=== PATIENT | male | born 1955 | race Caucasian/White ===

== ENCOUNTER 2019-10-06 12:14 | Emergency (ER) | payer MEDICARE, OTHER ==
--- NOTE | 2019-10-06 12:30 | EDM.PDOC ---
ED HPI GENERAL MEDICAL PROBLEM - General Chief Complaint: Abdominal Pain Stated Complaint: SWOLLEN ABDOMEN Time Seen by Provider: 10/06/19 12:24 - History of Present Illness INITIAL COMMENTS - FREE TEXT/NARRATIVE: 64-year-old male presents to the emergency room with increasing swelling mostly in his abdomen but to a lesser degree in his extremities. This is been going on for the last week and a half progressively getting worse. The patient has a significant past medical history of liver cancer he is currently getting chemotherapy for this his last round of chemo was in March he was scheduled to have one weekend however with the COVID-19 situation this was put off the last round of chemo was fairly successful there was 1 area of concern. Patient denies any pain anywhere he does have increasing shortness of breath with worsening edema. Patient says about every year and a half or so he has this edema problem. He denies any chest pain. He does have increased breathing difficulties mostly with activity and ambulation. Patient denies any fevers or chills no nausea no vomiting no chest pain. He is not aware of any allergies. He takes an occasional potassium and occasional allergy medication all [id number]. - Related Data Allergies Allergy/AdvReac Type Severity Reaction Status Date / Time No Known Allergies Allergy Verified 10/06/19 12:23 Home Meds: Home Meds . [No Known Home Meds] 10/06/19 [History] Social & Family History - Tobacco Use Smoking Status *Q: Current Every Day Smoker Years of Tobacco use: 50 Packs/Tins Daily: 0.5 - Recreational Drug Use Recreational Drug Use: No ED ROS GENERAL - Review of Systems Review Of Systems: See Below Constitutional: Reports: No Symptoms HEENT: Reports: No Symptoms Respiratory: Reports: Shortness of Breath. Denies: Cough, Sputum Cardiovascular: Reports: Dyspnea on Exertion, Edema. Denies: Chest Pain Endocrine: Reports: No Symptoms GI/Abdominal: Reports: Other (Increased swelling in his abdomen). Denies: Abdominal Pain, Constipation, Diarrhea, Nausea, Vomiting : Reports: No Symptoms Musculoskeletal: Reports: No Symptoms Skin: Reports: Other (He had a little pimple-like lesion on his abdomen that ruptured spontaneously in his abdomen last night) Psychiatric: Reports: No Symptoms ED EXAM, GI/ABD - Physical Exam Exam: See Below Exam Limited By: No Limitations General Appearance: Alert, No Apparent Distress Head: Atraumatic, Normocephalic Neck: Normal Inspection, Supple, Non-Tender, Full Range of Motion. No: Lymphadenopathy (L), Lymphadenopathy (R) Respiratory/Chest: No Respiratory Distress, Lungs Clear, Normal Breath Sounds Cardiovascular: Regular Rate, Rhythm, No Edema, Systolic Murmur (Best in the right upper sternal border he is not aware of any ultrasound of her been done on this in the past) GI/Abdominal Exam: Normal Bowel Sounds, Non-Tender, Distended (Palpation is limited). No: Guarding, Rigid, Rebound, Tender Back Exam: Normal Inspection. No: CVA Tenderness (L), CVA Tenderness (R) Psychiatric: Normal Affect, Normal Mood Skin Exam: Warm, Dry, Intact Course - Vital Signs Last Recorded V/S: Last Vital Signs Temp 36.9 C 10/06/19 12:21 Pulse 100 10/06/19 12:21 Resp 16 10/06/19 12:21 BP 155/100 H 10/06/19 12:21 Pulse Ox 97 10/06/19 12:21 - Orders/Labs/Meds Orders: Active Orders 24 hr Category Date Time Status EKG Documentation Completion [RC] STAT Care 10/06/19 12:30 Active Labs: Laboratory Tests 10/06/19 10/06/19 10/06/19 Range/Units 12:45 12:45 12:45 WBC 4.42 (4.23-9.07) K/mm3 RBC 3.96 L (4.63-6.08) M/mm3 Hgb 14.0 (13.7-17.5) gm/dl Hct 39.5 L (40.1-51.0) % MCV 99.7 H (79.0-92.2) fl MCH 35.4 H (25.7-32.2) pg MCHC 35.4 (32.2-35.5) g/dl RDW Std Deviation 61.4 H (35.1-43.9) fL Plt Count 72 L (163-337) K/mm3 MPV 8.5 L (9.4-12.3) fl Neut % (Auto) 70.9 H (34.0-67.9) % Lymph % (Auto) 15.6 L (21.8-53.1) % Dolores % (Auto) 12.0 (5.3-12.2) % Eos % (Auto) 1.1 (0.8-7.0) Baso % (Auto) 0.2 (0.1-1.2) % Neut # (Auto) 3.13 (1.78-5.38) K/mm3 Lymph # (Auto) 0.69 L (1.32-3.57) K/mm3 Dolores # (Auto) 0.53 (0.30-0.82) K/mm3 Eos # (Auto) 0.05 (0.04-0.54) K/mm3 Baso # (Auto) 0.01 (0.01-0.08) K/mm3 Manual Slide Review Abnormal smear PT 17.3 H (9.7-12.0) SECONDS INR 1.63 APTT 37 H (22-31) SECONDS Sodium 141 (136-145) mEq/L Potassium 4.0 (3.5-5.1) mEq/L Chloride 105 (98-107) mEq/L Carbon Dioxide 27 (21-32) mEq/L Anion Gap 13.0 (5-15) BUN 9 (7-18) mg/dL Creatinine 1.0 (0.7-1.3) mg/dL Est Cr Clr Drug Dosing 78.32 mL/min Estimated GFR (MDRD) > 60 (>60) mL/min BUN/Creatinine Ratio 9.0 L (14-18) Glucose 130 H (80-115) mg/dL Calcium 7.9 L (8.5-10.1) mg/dL Magnesium (1.8-2.4) mg/dl Total Bilirubin 7.0 H (0.2-1.0) mg/dL Direct Bilirubin 2.40 H (0.0-0.2) mg/dl AST 55 H (15-37) U/L ALT 28 (16-63) U/L Alkaline Phosphatase 115 (46-116) U/L Ammonia (11-32) umol/L Total Protein 6.6 (6.4-8.2) g/dl Albumin 2.1 L (3.4-5.0) g/dl Globulin 4.5 gm/dL Albumin/Globulin Ratio 0.5 L (1-2) 10/06/19 10/06/19 Range/Units 12:45 12:45 WBC (4.23-9.07) K/mm3 RBC (4.63-6.08) M/mm3 Hgb (13.7-17.5) gm/dl Hct (40.1-51.0) % MCV (79.0-92.2) fl MCH (25.7-32.2) pg MCHC (32.2-35.5) g/dl RDW Std Deviation (35.1-43.9) fL Plt Count (163-337) K/mm3 MPV (9.4-12.3) fl Neut % (Auto) (34.0-67.9) % Lymph % (Auto) (21.8-53.1) % Dolores % (Auto) (5.3-12.2) % Eos % (Auto) (0.8-7.0) Baso % (Auto) (0.1-1.2) % Neut # (Auto) (1.78-5.38) K/mm3 Lymph # (Auto) (1.32-3.57) K/mm3 Dolores # (Auto) (0.30-0.82) K/mm3 Eos # (Auto) (0.04-0.54) K/mm3 Baso # (Auto) (0.01-0.08) K/mm3 Manual Slide Review PT (9.7-12.0) SECONDS INR APTT (22-31) SECONDS Sodium (136-145) mEq/L Potassium (3.5-5.1) mEq/L Chloride (98-107) mEq/L Carbon Dioxide (21-32) mEq/L Anion Gap (5-15) BUN (7-18) mg/dL Creatinine (0.7-1.3) mg/dL Est Cr Clr Drug Dosing mL/min Estimated GFR (MDRD) (>60) mL/min BUN/Creatinine Ratio (14-18) Glucose (80-115) mg/dL Calcium (8.5-10.1) mg/dL Magnesium 1.5 L (1.8-2.4) mg/dl Total Bilirubin (0.2-1.0) mg/dL Direct Bilirubin (0.0-0.2) mg/dl AST (15-37) U/L ALT (16-63) U/L Alkaline Phosphatase (46-116) U/L Ammonia 57 H (11-32) umol/L Total Protein (6.4-8.2) g/dl Albumin (3.4-5.0) g/dl Globulin gm/dL Albumin/Globulin Ratio (1-2) Meds: Medications Discontinued Medications Generic Name Dose Route Start Last Admin Trade Name Jaron PRN Reason Stop Dose Admin Furosemide 40 mg 10/06/19 12:32 10/06/19 12:55 Lasix IVPUSH 10/06/19 12:33 40 mg ONETIME ONE Administration Magnesium Sulfate 2 gm/ Premix 50 mls @ 25 mls/hr 10/06/19 13:37 10/06/19 14: 05 IV 10/06/19 15:36 25 mls/hr ONETIME ONE Administration Levofloxacin/Dextrose 500 mg/ 100 mls @ 100 mls/hr 10/06/19 14:43 Premix IV 10/06/19 15:42 ONETIME ONE - Re-Assessments/Exams Free Text/Narrative Re-Assessment/Exam: 10/06/19 15:13 Evaluated by myself and again by , our hospitalist both of us agree the patient needs to be admitted he declines this and will sign out AMA he needs to get his affairs in order but he agrees to return to the hospital before noon tomorrow. At which point he will need repeat labs urinalysis CBC CMP. It is also recommended that the patient be started on 500 mg of Levaquin to hold him until he gets back tomorrow I have informed the patient no uncertain terms that we cannot exclude SBP and this can be a very dangerous situation 10/06/19 16:12 The Levaquin is just getting started now he will leave AGAINST MEDICAL ADVICE after this. Departure - Departure Time of Disposition: 15:16 Disposition: Against Medical Advice 07 Clinical Impression: Ascites, malignant, Liver cancer - Discharge Information Referrals: Pelon Acosta MD [Primary Care Provider] - Forms: ED Department Discharge Additional Instructions: Return to the emergency room before noon tomorrow. Return sooner with any questions problems or worsening symptoms. Return immediately if you develop any fevers. You have been advised that you need to be admitted to the hospital for further evaluation and treatment and to exclude a condition that caused spontaneous bacterial peritonitis. This can be a very serious infection. Sepsis Event Note - Evaluation Sepsis Screening Result: No Definite Risk - Focused Exam Vital Signs: Vital Signs Temp Pulse Resp BP Pulse Ox 10/06/19 12:21 36.9 C 100 16 155/100 H 97 Date Exam was Performed: 10/06/19 Time Exam was Performed: 16:11 - My Orders Last 24 Hours: My Active Orders 10/06/19 12:30 EKG Documentation Completion [RC] STAT - Assessment/Plan Last 24 Hours: My Active Orders 10/06/19 12:30 EKG Documentation Completion [RC] STAT
[2019-10-06] MEDS ORDERED: Furosemide 20 MG/2 ML VIAL IVPUSH ONE (12:32)
[2019-10-06] MEDS ORDERED: Magnesium Sulfate/Water 2 GM in Premix Bag 1 BAG IV ONE (13:37)
--- NOTE | 2019-10-06 13:54 | CR ---
Chest: Frontal view of the chest was obtained. Comparison: No prior chest imaging. Heart size is normal. Tortuous thoracic aorta is seen. Lung markings are mildly increased most likely accentuated from portable technique. No acute parenchymal change is suspected. Bony structures shows minimal scoliosis. Impression: 1. Findings as noted above. 2. Nothing acute is suspected. Diagnostic code #2 This report was dictated in MDT
[2019-10-06] MEDS ORDERED: Levofloxacin/Dextrose 5%-Water 500 MG in Premix Bag 1 BAG IV ONE (14:43)
--- NOTE | 2019-10-06 16:52 | PCM.CONS ---
H&P History of Present Illness - General Date of Service: 10/06/19 - History of Present Illness Other HPI/Comments: Mr. Barajas is a pleasant 64-year-old male, with past medical history significant for recent diagnosis of liver cancer currently on trial chemotherapy ,and nicotine dependence who presented to the ED with chief complaint of lower extremity swelling mild shortness of breath and swollen abdomen. The patient reported he he was diagnosed with liver cancer back in February 2019, so far. The patient has had 2 rounds of chemo therapy. Was supposed to have another chemotherapy before but due to coronavirus, patient reported he has not been able to follow-up with his appointment. Ported for the past 3 days, he had noticed increased swelling in both lower extremities, at the same time noticed significant distention in his abdomen. Symptoms also associated with mild shortness of breath this morning, was concerned so came to the ED for evaluation. On presentation to ED, patient noted with tense abdomen with mild diffuse discomfort. Denies any obvious fevers or chills no nausea no vomiting noted with 3+ pitting edema bilaterally.work-up that was done to the patient in the ED indicated WBC 4.4, H&H 14.0/39.5 platelets 72 INR 1.6 sodium/potassium 141/4.0 chloride 105 CO2 29 BUN/creatinine 9/1.0 random glucose of 130 magnesium 1.5 Albumin 2.1 given this presentation, the diagnosis could include portal vein thrombosis, ascites possibly secondary to peritonitis, ascites requiring therapeutic paracentesis and possible CHF. Plan is to admit patient to [facility] telemetry, but the patient has adamantly refused admitted today and states that he will come back tomorrow to the hospital. Risk and benefit was explained to the patient and the patient that he will leave AGAINST MEDICAL ADVICE and come back tomorrow for any treatment. - Related Data Allergies/Adverse Reactions: Allergies Allergy/AdvReac Type Severity Reaction Status Date / Time No Known Allergies Allergy Verified 10/06/19 12:23 Home Medications: Home Meds . [No Known Home Meds] 10/06/19 [History] Past Medical History Endocrine/Metabolic History: Reports: Diabetes, Type II Oncologic (Cancer) History: Reports: Liver Social & Family History - Tobacco Use Smoking Status *Q: Current Every Day Smoker Years of Tobacco use: 50 Packs/Tins Daily: 0.5 - Recreational Drug Use Recreational Drug Use: No H&P Review of Systems - Review of Systems: Review Of Systems: See Below General: Reports: No Symptoms HEENT: Reports: No Symptoms Pulmonary: Reports: Shortness of Breath Cardiovascular: Reports: Orthopnea Gastrointestinal: Reports: Abdominal Pain, Distension, Other (abdominal distention and swelling) Musculoskeletal: Reports: No Symptoms Skin: Reports: Pruritis Psychiatric: Reports: No Symptoms, Confusion Neurological: Reports: No Symptoms Exam - Exam Exam: See Below - Vital Signs Vital Signs: Last Vital Signs Temp 98.5 F 10/06/19 12:21 Pulse 100 10/06/19 12:21 Resp 16 10/06/19 12:21 BP 155/100 H 10/06/19 12:21 Pulse Ox 97 10/06/19 12:21 Weight: 168 lb - Exam General: Alert, Oriented, Cooperative, Mild Distress, Other (Slightly jaundiced) HEENT: Conjunctiva Clear, EACs Clear, EOMI, Hearing Intact, Mucosa Moist & [place] Neck: Supple, Trachea Midline Lungs: Clear to Auscultation, Decreased Breath Sounds Cardiovascular: Regular Rate, Regular Rhythm GI/Abdominal Exam: Distended, Hepatomegaly, Other (blister on belly) Extremities: Normal Inspection, Normal Range of Motion, Pedal Edema (Plus pitting edema) Skin: Warm, Dry, Intact, Wound (on belly) Neurological: Cranial Nerves Intact, Reflexes Equal Bilateral Neuro Extensive - Mental Status: Alert, Oriented x3, Normal Mood/Affect, Normal Cognition, Memory Intact Neuro Extensive - Motor, Sensory, Reflexes: CN II-XII Intact, Normal Gait, Normal Reflexes Psychiatric: Alert, Normal Affect, Normal Mood - Patient Data Lab Results Last 24 hrs: Laboratory Results - last 24 hr 10/06/19 10/06/19 10/06/19 Range/Units 12:45 12:45 12:45 WBC 4.42 (4.23-9.07) K/mm3 RBC 3.96 L (4.63-6.08) M/mm3 Hgb 14.0 (13.7-17.5) gm/dl Hct 39.5 L (40.1-51.0) % MCV 99.7 H (79.0-92.2) fl MCH 35.4 H (25.7-32.2) pg MCHC 35.4 (32.2-35.5) g/dl RDW Std Deviation 61.4 H (35.1-43.9) fL Plt Count 72 L (163-337) K/mm3 MPV 8.5 L (9.4-12.3) fl Neut % (Auto) 70.9 H (34.0-67.9) % Lymph % (Auto) 15.6 L (21.8-53.1) % Robertson % (Auto) 12.0 (5.3-12.2) % Eos % (Auto) 1.1 (0.8-7.0) Baso % (Auto) 0.2 (0.1-1.2) % Neut # (Auto) 3.13 (1.78-5.38) K/mm3 Lymph # (Auto) 0.69 L (1.32-3.57) K/mm3 Robertson # (Auto) 0.53 (0.30-0.82) K/mm3 Eos # (Auto) 0.05 (0.04-0.54) K/mm3 Baso # (Auto) 0.01 (0.01-0.08) K/mm3 Manual Slide Review Abnormal smear PT 17.3 H (9.7-12.0) SECONDS INR 1.63 APTT 37 H (22-31) SECONDS Sodium 141 (136-145) mEq/L Potassium 4.0 (3.5-5.1) mEq/L Chloride 105 (98-107) mEq/L Carbon Dioxide 27 (21-32) mEq/L Anion Gap 13.0 (5-15) BUN 9 (7-18) mg/dL Creatinine 1.0 (0.7-1.3) mg/dL Est Cr Clr Drug Dosing 78.32 mL/min Estimated GFR (MDRD) > 60 (>60) mL/min BUN/Creatinine Ratio 9.0 L (14-18) Glucose 130 H (80-115) mg/dL Calcium 7.9 L (8.5-10.1) mg/dL Magnesium (1.8-2.4) mg/dl Total Bilirubin 7.0 H (0.2-1.0) mg/dL Direct Bilirubin 2.40 H (0.0-0.2) mg/dl AST 55 H (15-37) U/L ALT 28 (16-63) U/L Alkaline Phosphatase 115 (46-116) U/L Ammonia (11-32) umol/L Total Protein 6.6 (6.4-8.2) g/dl Albumin 2.1 L (3.4-5.0) g/dl Globulin 4.5 gm/dL Albumin/Globulin Ratio 0.5 L (1-2) 10/06/19 10/06/19 Range/Units 12:45 12:45 WBC (4.23-9.07) K/mm3 RBC (4.63-6.08) M/mm3 Hgb (13.7-17.5) gm/dl Hct (40.1-51.0) % MCV (79.0-92.2) fl MCH (25.7-32.2) pg MCHC (32.2-35.5) g/dl RDW Std Deviation (35.1-43.9) fL Plt Count (163-337) K/mm3 MPV (9.4-12.3) fl Neut % (Auto) (34.0-67.9) % Lymph % (Auto) (21.8-53.1) % Robertson % (Auto) (5.3-12.2) % Eos % (Auto) (0.8-7.0) Baso % (Auto) (0.1-1.2) % Neut # (Auto) (1.78-5.38) K/mm3 Lymph # (Auto) (1.32-3.57) K/mm3 Robertson # (Auto) (0.30-0.82) K/mm3 Eos # (Auto) (0.04-0.54) K/mm3 Baso # (Auto) (0.01-0.08) K/mm3 Manual Slide Review PT (9.7-12.0) SECONDS INR APTT (22-31) SECONDS Sodium (136-145) mEq/L Potassium (3.5-5.1) mEq/L Chloride (98-107) mEq/L Carbon Dioxide (21-32) mEq/L Anion Gap (5-15) BUN (7-18) mg/dL Creatinine (0.7-1.3) mg/dL Est Cr Clr Drug Dosing mL/min Estimated GFR (MDRD) (>60) mL/min BUN/Creatinine Ratio (14-18) Glucose (80-115) mg/dL Calcium (8.5-10.1) mg/dL Magnesium 1.5 L (1.8-2.4) mg/dl Total Bilirubin (0.2-1.0) mg/dL Direct Bilirubin (0.0-0.2) mg/dl AST (15-37) U/L ALT (16-63) U/L Alkaline Phosphatase (46-116) U/L Ammonia 57 H (11-32) umol/L Total Protein (6.4-8.2) g/dl Albumin (3.4-5.0) g/dl Globulin gm/dL Albumin/Globulin Ratio (1-2) Result Diagrams: 10/06/19 12:45 10/06/19 12:45 Sepsis Event Note - Evaluation Sepsis Screening Result: No Definite Risk - Focused Exam Vital Signs: Vital Signs Temp Pulse Resp BP Pulse Ox 10/06/19 12:21 98.5 F 100 16 155/100 H 97 Date Exam was Performed: 10/06/19 Time Exam was Performed: 16:46 Consult PN Assessment/Plan Procedures: Procedures BONE IMAGING WHOLE BODY (03/26/19) MRI ABDOMEN W/O & W/DYE (01/09/19) Problem List Initiated/Reviewed/Updated: Yes My Orders Last 24 Hours: Assessment and plan: Plan is to keep the patient in the hospital for abdominal distention secondary to ascites with plan for therapeutic paracentesis with diagnosis, possible tenuous bacterial peritonitis and portal vein obstruction. At this time, the patient is adamantly refusing to be admitted and plans to leave AGAINST MEDICAL ADVICE state he has something to do at home. Patient is advised to come back to the ED if symptoms get worse. Per the patient he states he will be coming back tomorrow. Can benefit was explained to the patient at this time patient has agreed to leave AGAINST MEDICAL ADVICE.
--- NOTE | 2019-10-07 18:39 | CONS ---
CONSULTING PHYSICIAN: PARUL CAMEJO MD DATE OF CONSULTATION: 10/06/2019 ADDENDUM: REASON FOR MEDICAL CONSULT: Further management of the patient who came to emergency room complaining of abdominal distention and was found with dense ascites. PAST MEDICAL HISTORY: Significant for a liver malignancy diagnosed in February 2019, smoking. The patient was seen, examined, and discussed by me with Elie Edwards PA-C. The patient is a 64-year-old white male with past medical history as above who received his last chemotherapy in March 2019 and was scheduled next chemotherapy for Easter. Stated that overall he was in his usual state of health till approximately 3-4 days ago when the patient noticed that his abdomen was starting to get increasingly distended, and the patient had shortness of breath on modest exertion. He came to the emergency room for evaluation. Evaluation revealed that patient has very large and dense ascites. Pulse ox though was normal. Otherwise, blood test did not reveal any elevation of white blood cells. The patient's creatinine was found normal of 1.0. The patient was afebrile. On physical exam, very minimal diffuse tenderness throughout abdomen. INR is 1.63, moderately elevated. H and H are normal, 14.0/39.5. Overall impression that the patient with a liver malignancy, on chemotherapy, developed sudden worsening of ascites for last 3 days that resulted in shortness of breath on modest exertion. In the emergency room, the patient received Lasix 40 mg IV push, and then already responded with significant diuresis, even though shortness of breath on modest exertion not resolved. In this setting, the patient is strongly recommended for admission for the differential diagnosis is gradual worsening of ascites and acute on top of chronic CHF verus spontaneous bacterial peritonitis versus hepatic vein thrombosis. This requires further investigation including therapeutic and diagnostic paracentesis, CT scan of abdomen with contrast in concern of possible hepatic vein thrombosis, and the patient requires at least moderate IV diuresis. In the emergency room, the patient received Lasix 40 mg IV push. We did give the patient 1 dose of Levaquin 500 mg IV x1. Unfortunately, the patient absolutely refused to be admitted to the hospital despite all our explanation, but he agreed that tomorrow morning after he finishes some home errands that the patient must finish today, he will come to the emergency room as early as possible for admission and further workup and management that will include antibiotics, IV Lasix, and testing as above. For now, though we do not feel comfortable to discharge the patient from ER, but the patient does not want to stay, so he is signing out AMA. For details of the patient's history, clinical presentation, test results, physical exam, please see consult note prepared by Elie Edwards PA-C, that I discussed with Elie in details at time of consult visit. VLAD /[id number]
== END 2019-10-06 17:23 | disposition left against medical advice (07) ==
LOC: JD.ED 12:14
DX: C22.9 Malignant neoplasm of liver, not specified as primary or secondary (principal); R18.8 Other ascites; F17.210 Nicotine dependence, cigarettes, uncomplicated; R06.02 Shortness of breath; E11.9 Type 2 diabetes mellitus without complications
CPT/HCPCS: 36415; 71045; 80053; 82140; 82248; 83735; 85025; 85610; 85730; 93005; 96365; 96367; 96375; 99284; A9270; J1956; J3475; 99285

== ENCOUNTER 2019-10-07 10:28 | Inpatient (IN) | payer MEDICARE, OTHER ==
--- NOTE | 2019-10-07 10:41 | EDM.PDOC ---
ED HPI GENERAL MEDICAL PROBLEM - General Chief Complaint: General Stated Complaint: FLUID RETENTION Time Seen by Provider: 10/07/19 10:36 - History of Present Illness INITIAL COMMENTS - FREE TEXT/NARRATIVE: 64-year-old male returns to the emergency room as he said he would do after his visit yesterday. The patient returns to the emergency room anticipating admission for his severe ascites and edema. He was seen here yesterday and it was recommended he be only admitted however he had some business he had to attend to prior to being admitted he signed out AMA but did promise to come back today before noon. He upheld his promise. Patient denies any fevers or chills he thinks his edema is a little better I think he looks a little more jaundiced than he did yesterday. - Related Data Allergies Allergy/AdvReac Type Severity Reaction Status Date / Time No Known Allergies Allergy Verified 10/07/19 10:42 Home Meds: Home Meds . [No Known Home Meds] 10/06/19 [History] Past Medical History Endocrine/Metabolic History: Reports: Diabetes, Type II Oncologic (Cancer) History: Reports: Liver Social & Family History - Tobacco Use Smoking Status *Q: Current Every Day Smoker Years of Tobacco use: 50 Packs/Tins Daily: 0.5 - Recreational Drug Use Recreational Drug Use: No ED ROS GENERAL - Review of Systems Review Of Systems: See Below Constitutional: Reports: No Symptoms Respiratory: Reports: Other (It is hard for him to take a real deep breath because of his distention) Cardiovascular: Reports: No Symptoms GI/Abdominal: Reports: Other (Swelling and distention). Denies: Abdominal Pain Musculoskeletal: Reports: No Symptoms Skin: Reports: No Symptoms Neurological: Reports: No Symptoms ED EXAM, GENERAL - Physical Exam Exam: See Below Exam Limited By: No Limitations General Appearance: Alert, No Apparent Distress Eye Exam: Bilateral Eye: Other (Sclera icteric bilaterally) Head: Atraumatic, Normocephalic Neck: Normal Inspection, Supple, Non-Tender, Full Range of Motion Respiratory/Chest: No Respiratory Distress, Lungs Clear, Normal Breath Sounds Cardiovascular: Regular Rate, Rhythm, Systolic Murmur ( type murmur). No: No Edema GI/Abdominal: Normal Bowel Sounds, Distended, Other (Nephric and ascites) Back Exam: Normal Inspection. No: CVA Tenderness (L), CVA Tenderness (R) Extremities: Other (2-3+ pitting edema bilat) Course - Vital Signs Last Recorded V/S: Last Vital Signs Temp 36.3 C 10/07/19 10:36 Pulse 93 10/07/19 10:36 Resp 22 H 10/07/19 10:36 BP 138/86 10/07/19 10:36 Pulse Ox 98 10/07/19 10:36 - Orders/Labs/Meds Orders: Active Orders 24 hr Category Date Time Status UA RFX MENG AND CULT IF INDIC [URIN] Stat Lab 10/07/19 10:35 Ordered Medication Orders Acetaminophen (Tylenol) 650 mg PO Q6H PRN PRN Reason: Pain (Mild 1-3) or Fever Acetaminophen (Tylenol) 650 mg RECTAL Q6H PRN PRN Reason: Pain (Mild 1-3) or Fever Albuterol (Proventil Neb Soln) 2.5 mg NEB Q2H PRN PRN Reason: Wheezing Diphenhydramine HCl (Benadryl) 25 mg IVPUSH Q4H PRN PRN Reason: Restlessness or Allergies Famotidine (Pepcid) 20 mg PO Q12H [facility] Hydralazine HCl (Apresoline) 10 mg IVPUSH Q6H PRN PRN Reason: Hypertension Piperacillin Sod/Tazobactam (Sod 4.5 gm/ Sodium Chloride) 100 mls @ 25 mls/hr IV Q8H [facility] Piperacillin Sod/Tazobactam (Sod 4.5 gm/ Sodium Chloride) 100 mls @ 200 mls/hr IV ONETIME ONE Stop: 10/07/19 12:29 Morphine Sulfate (Morphine) 2 mg IVPUSH Q4H PRN PRN Reason: Pain (severe 7-10) Ondansetron HCl (Zofran) 4 mg IVPUSH Q4H PRN PRN Reason: Nausea and Vomiting Polyethylene Glycol (Miralax) 17 gm PO DAILY [facility] Propranolol HCl (Inderal) 5 mg PO BID [facility] Senna/Docusate Sodium (Senna Plus) 2 tab PO BID [facility] Spironolactone (Aldactone) 25 mg PO BID [facility] Sucralfate (Carafate) 2 gm PO BEDTIME [facility] Tamsulosin HCl (Flomax) 0.4 mg PO BEDTIME [facility] Labs: Laboratory Tests 10/07/19 10/07/19 10/07/19 Range/Units 10:45 10:45 10:45 WBC 4.47 (4.23-9.07) K/mm3 RBC 3.93 L (4.63-6.08) M/mm3 Hgb 13.8 (13.7-17.5) gm/dl Hct 39.6 L (40.1-51.0) % MCV 100.8 H (79.0-92.2) fl MCH 35.1 H (25.7-32.2) pg MCHC 34.8 (32.2-35.5) g/dl RDW Std Deviation 63.3 H (35.1-43.9) fL Plt Count 80 L (163-337) K/mm3 MPV 8.3 L (9.4-12.3) fl Neut % (Auto) 62.5 (34.0-67.9) % Lymph % (Auto) 19.0 L (21.8-53.1) % [place] % (Auto) 16.1 H (5.3-12.2) % Eos % (Auto) 1.8 (0.8-7.0) Baso % (Auto) 0.4 (0.1-1.2) % Neut # (Auto) 2.79 (1.78-5.38) K/mm3 Lymph # (Auto) 0.85 L (1.32-3.57) K/mm3 [place] # (Auto) 0.72 (0.30-0.82) K/mm3 Eos # (Auto) 0.08 (0.04-0.54) K/mm3 Baso # (Auto) 0.02 (0.01-0.08) K/mm3 Manual Slide Review Abnormal smear PT 18.2 H (9.7-12.0) SECONDS INR 1.72 Sodium 140 (136-145) mEq/L Potassium 3.5 (3.5-5.1) mEq/L Chloride 103 (98-107) mEq/L Carbon Dioxide 28 (21-32) mEq/L Anion Gap 12.5 (5-15) BUN 9 (7-18) mg/dL Creatinine 1.0 (0.7-1.3) mg/dL Est Cr Clr Drug Dosing TNP Estimated GFR (MDRD) > 60 (>60) mL/min BUN/Creatinine Ratio 9.0 L (14-18) Glucose 136 H (80-115) mg/dL Calcium 8.0 L (8.5-10.1) mg/dL Total Bilirubin 6.4 H (0.2-1.0) mg/dL Direct Bilirubin 2.70 H (0.0-0.2) mg/dl AST 56 H (15-37) U/L ALT 27 (16-63) U/L Alkaline Phosphatase 116 (46-116) U/L Ammonia (11-32) umol/L Total Protein 6.7 (6.4-8.2) g/dl Albumin 2.0 L (3.4-5.0) g/dl Globulin 4.7 gm/dL Albumin/Globulin Ratio 0.4 L (1-2) 04/26/20 Range/Units 10:45 WBC (4.23-9.07) K/mm3 RBC (4.63-6.08) M/mm3 Hgb (13.7-17.5) gm/dl Hct (40.1-51.0) % MCV (79.0-92.2) fl MCH (25.7-32.2) pg MCHC (32.2-35.5) g/dl RDW Std Deviation (35.1-43.9) fL Plt Count (163-337) K/mm3 MPV (9.4-12.3) fl Neut % (Auto) (34.0-67.9) % Lymph % (Auto) (21.8-53.1) % [place] % (Auto) (5.3-12.2) % Eos % (Auto) (0.8-7.0) Baso % (Auto) (0.1-1.2) % Neut # (Auto) (1.78-5.38) K/mm3 Lymph # (Auto) (1.32-3.57) K/mm3 [place] # (Auto) (0.30-0.82) K/mm3 Eos # (Auto) (0.04-0.54) K/mm3 Baso # (Auto) (0.01-0.08) K/mm3 Manual Slide Review PT (9.7-12.0) SECONDS INR Sodium (136-145) mEq/L Potassium (3.5-5.1) mEq/L Chloride (98-107) mEq/L Carbon Dioxide (21-32) mEq/L Anion Gap (5-15) BUN (7-18) mg/dL Creatinine (0.7-1.3) mg/dL Est Cr Clr Drug Dosing Estimated GFR (MDRD) (>60) mL/min BUN/Creatinine Ratio (14-18) Glucose (80-115) mg/dL Calcium (8.5-10.1) mg/dL Total Bilirubin (0.2-1.0) mg/dL Direct Bilirubin (0.0-0.2) mg/dl AST (15-37) U/L ALT (16-63) U/L Alkaline Phosphatase (46-116) U/L Ammonia 39 H (11-32) umol/L Total Protein (6.4-8.2) g/dl Albumin (3.4-5.0) g/dl Globulin gm/dL Albumin/Globulin Ratio (1-2) Meds: Medications Generic Name Dose Route Start Last Admin Trade Name Freq PRN Reason Stop Dose Admin Acetaminophen 650 mg 10/07/19 11:36 Tylenol PO Q6H PRN Pain (Mild 1-3) or Fever Acetaminophen 650 mg 10/07/19 11:36 Tylenol RECTAL Q6H PRN Pain (Mild 1-3) or Fever Albuterol 2.5 mg 10/07/19 11:36 Proventil Neb Soln NEB Q2H PRN Wheezing Diphenhydramine HCl 25 mg 10/07/19 11:36 Benadryl IVPUSH Q4H PRN Restlessness or Allergies Famotidine 20 mg 10/07/19 12:00 Pepcid PO Q12H [facility] Hydralazine HCl 10 mg 10/07/19 11:36 Apresoline IVPUSH Q6H PRN Hypertension Piperacillin Sod/Tazobactam 100 mls @ 25 mls/hr 10/07/19 18:00 Sod 4.5 gm/ Sodium Chloride IV Q8H [facility] Piperacillin Sod/Tazobactam 100 mls @ 200 mls/hr 10/07/19 12:00 Sod 4.5 gm/ Sodium Chloride IV 10/07/19 12:29 ONETIME ONE Morphine Sulfate 2 mg 10/07/19 11:36 Morphine IVPUSH Q4H PRN Pain (severe 7-10) Ondansetron HCl 4 mg 10/07/19 11:36 Zofran IVPUSH Q4H PRN Nausea and Vomiting Polyethylene Glycol 17 gm 10/08/19 09:00 Miralax PO DAILY [facility] Propranolol HCl 5 mg 10/07/19 21:00 Inderal PO BID [facility] Senna/Docusate Sodium 2 tab 10/07/19 21:00 Senna Plus PO BID [facility] Spironolactone 25 mg 10/07/19 21:00 Aldactone PO BID [facility] Sucralfate 2 gm 10/07/19 21:00 Carafate PO BEDTIME [facility] Tamsulosin HCl 0.4 mg 10/07/19 21:00 Flomax PO BEDTIME [facility] - Re-Assessments/Exams Free Text/Narrative Re-Assessment/Exam: 10/07/19 12:24 The patient's course the hospitalist was advised the patient returned , he came in and did admit the patient Departure - Departure Time of Disposition: 11:55 Disposition: Admitted As Inpatient 64 Clinical Impression: Ascites, malignant, Liver cancer - Discharge Information Sepsis Event Note - Focused Exam Vital Signs: Vital Signs Temp Pulse Resp BP Pulse Ox 10/07/19 10:36 36.3 C 93 22 H 138/86 98 Date Exam was Performed: 10/07/19 Time Exam was Performed: 12:23 - My Orders Last 24 Hours: My Active Orders 10/07/19 10:35 UA RFX MENG AND CULT IF INDIC [URIN] Stat - Assessment/Plan Last 24 Hours: My Active Orders 10/07/19 10:35 UA RFX MENG AND CULT IF INDIC [URIN] Stat
[2019-10-07] MEDS ORDERED: Acetaminophen 325 MG Tab PO PRN (11:36)
[2019-10-07] MEDS ORDERED: Albuterol 0.083% 2.5 MG/3 ML Neb Soln NEB PRN (11:36)
[2019-10-07] MEDS ORDERED: diphenhydrAMINE 50 MG/ML SDV IVPUSH PRN (11:36)
[2019-10-07] MEDS ORDERED: Morphine 2 MG/ML Syringe IVPUSH PRN (11:36)
[2019-10-07] MEDS ORDERED: hydrALAZINE 20 MG/ML SDV IVPUSH PRN (11:36)
[2019-10-07] MEDS ORDERED: Ondansetron 4 MG/2 ML SDV IVPUSH PRN (11:36)
[2019-10-07] MEDS ORDERED: Acetaminophen 650 MG Supp RECTAL PRN (11:36)
[2019-10-07] MEDS ORDERED: Piperacillin/Tazobactam 4.5 GM in Sodium Chloride 0.9% 100 ML IV ONE (12:00)
[2019-10-07] MEDS ORDERED: Famotidine 20 MG Tab PO SCH (12:00)
[2019-10-07] MEDS ORDERED: Sodium Chloride 0.9% 60 ML IV ONE (12:46)
[2019-10-07] MEDS ORDERED: Iopamidol 755 Mg/ML 100 ML Bottle IVPUSH ONE (12:46)
[2019-10-07] MEDS ORDERED: Sodium Chloride 0.9% 10 ML Syringe FLUSH PRN (12:46)
--- NOTE | 2019-10-07 14:08 | PCM.HP.2 ---
H&P History of Present Illness - General Date of Service: 10/07/19 Admit Problem/Dx: Admission Diagnosis/Problem Admission Diagnosis/Problem Ascites - History of Present Illness Other HPI/Comments: Mr. Karl lopez 64-year-old male, with past medical history significant for cancer currently on chemotherapy. Reported he was diagnosed back in February 2019 with liver cancer. Reported prior history of hepatitis C. Stated he has been doing chemotherapy, was supposed to follow-up back with disability attorney in [place] prior to [facility] for additional round of chemotherapy but due to the coronavirus has not been able to do so. Reported about 3 days ago, he started noticing increased swelling in both lower extremities at the same time noticed worsening of abdominal distention. Per the patient, he has never had this amount of distention has never required paracentesis in the past. Stated some shortness of breath especially with exertion, reports mild orthopnea denied any obvious fevers or chills, no nausea vomiting. Was concerned for worsening abdominal swelling so came to the ED initially yesterday where patient was advised to be admitted to the hospital bed at this time patient stated he had something to do we will come back today. Patient came back today noted with still abdominal distention, slight jaundice today compared to yesterday. WBC 1.4, H&H 13.8/39.6, platelets 80 INR 1.7 compared to 1.6 yesterday. Sodium/potassium 140/2.5 chloride 102 228, BUN/creatinine 9/ 1.0 random glucose 136, total bilirubin 6.4, direct bilirubin 2.7 AST/ALT 56/27 alkaline phosphatase 116 with ammonia of 39. Given this presentation patient will be admitted with chief complaint abdominal distention possibly secondary to spontaneous ileus, and CHF with mild exacerbation for further work-up and management. - Related Data Allergies/Adverse Reactions: Allergies Allergy/AdvReac Type Severity Reaction Status Date / Time No Known Allergies Allergy Verified 10/07/19 10:42 Home Medications: Home Meds . [No Known Home Meds] 10/06/19 [History] Past Medical History Cardiovascular History: Reports: Heart Murmur Endocrine/Metabolic History: Reports: Diabetes, Type II Oncologic (Cancer) History: Reports: Liver - Infectious Disease History Infectious Disease History: Reports: Measles - Past Surgical History Cardiovascular Surgical History: Reports: None Social & Family History - Family History Family Medical History: Noncontributory - Tobacco Use Smoking Status *Q: Current Every Day Smoker Years of Tobacco use: 50 Packs/Tins Daily: 0.5 Used Tobacco, but Quit: No Second Hand Smoke Exposure: No - Caffeine Use Caffeine Use: Reports: Coffee - Recreational Drug Use Recreational Drug Use: No H&P Review of Systems - Review of Systems: Review Of Systems: See Below General: Reports: No Symptoms HEENT: Reports: No Symptoms Pulmonary: Reports: Shortness of Breath Cardiovascular: Reports: Dyspnea on Exertion, Orthopnea Gastrointestinal: Reports: Abdominal Pain, Distension Genitourinary: Reports: No Symptoms Musculoskeletal: Reports: No Symptoms Skin: Reports: Jaundice, Pruritis, Change in Color Psychiatric: Reports: No Symptoms Neurological: Reports: No Symptoms Hematologic/Lymphatic: Reports: No Symptoms Immunologic: Reports: No Symptoms Exam - Exam Exam: See Below - Vital Signs Vital Signs: Last Vital Signs Temp 97.3 F 10/07/19 10:36 Pulse 93 10/07/19 10:36 Resp 22 H 10/07/19 10:36 BP 138/86 10/07/19 10:36 Pulse Ox 98 10/07/19 10:36 Weight: 259 lb 3.2 oz - Exam General: Alert, Oriented, Mild Distress HEENT: Hearing Intact, Mucosa Moist & [place], Normal Nasal Septum, Posterior Pharynx Clear, Pupils Equal, Pupils Reactive, Scleral Icterus Neck: Supple, Trachea Midline Lungs: Decreased Breath Sounds, Rales Cardiovascular: Regular Rate, Regular Rhythm GI/Abdominal Exam: Distended, Hepatomegaly, Other (mild difuse tenderness noted) Extremities: Normal Range of Motion, Non-Tender, Pedal Edema (3 pluse) Neuro Extensive - Mental Status: Alert, Oriented x3, Normal Mood/Affect, Normal Cognition Neuro Extensive - Motor, Sensory, Reflexes: Normal Gait, Normal Reflexes Psychiatric: Alert, Normal Affect, Normal Mood - Patient Data Lab Results Last 24 hrs: Laboratory Results - last 24 hr 10/07/19 10/07/19 10/07/19 Range/Units 10:45 10:45 10:45 WBC 4.47 (4.23-9.07) K/mm3 RBC 3.93 L (4.63-6.08) M/mm3 Hgb 13.8 (13.7-17.5) gm/dl Hct 39.6 L (40.1-51.0) % MCV 100.8 H (79.0-92.2) fl MCH 35.1 H (25.7-32.2) pg MCHC 34.8 (32.2-35.5) g/dl RDW Std Deviation 63.3 H (35.1-43.9) fL Plt Count 80 L (163-337) K/mm3 MPV 8.3 L (9.4-12.3) fl Neut % (Auto) 62.5 (34.0-67.9) % Lymph % (Auto) 19.0 L (21.8-53.1) % Gem % (Auto) 16.1 H (5.3-12.2) % Eos % (Auto) 1.8 (0.8-7.0) Baso % (Auto) 0.4 (0.1-1.2) % Neut # (Auto) 2.79 (1.78-5.38) K/mm3 Lymph # (Auto) 0.85 L (1.32-3.57) K/mm3 Gem # (Auto) 0.72 (0.30-0.82) K/mm3 Eos # (Auto) 0.08 (0.04-0.54) K/mm3 Baso # (Auto) 0.02 (0.01-0.08) K/mm3 Manual Slide Review Abnormal smear PT 18.2 H (9.7-12.0) SECONDS INR 1.72 Sodium 140 (136-145) mEq/L Potassium 3.5 (3.5-5.1) mEq/L Chloride 103 (98-107) mEq/L Carbon Dioxide 28 (21-32) mEq/L Anion Gap 12.5 (5-15) BUN 9 (7-18) mg/dL Creatinine 1.0 (0.7-1.3) mg/dL Est Cr Clr Drug Dosing TNP Estimated GFR (MDRD) > 60 (>60) mL/min BUN/Creatinine Ratio 9.0 L (14-18) Glucose 136 H (80-115) mg/dL Calcium 8.0 L (8.5-10.1) mg/dL Total Bilirubin 6.4 H (0.2-1.0) mg/dL Direct Bilirubin 2.70 H (0.0-0.2) mg/dl AST 56 H (15-37) U/L ALT 27 (16-63) U/L Alkaline Phosphatase 116 (46-116) U/L Ammonia (11-32) umol/L Total Protein 6.7 (6.4-8.2) g/dl Albumin 2.0 L (3.4-5.0) g/dl Globulin 4.7 gm/dL Albumin/Globulin Ratio 0.4 L (1-2) 04/26/20 Range/Units 10:45 WBC (4.23-9.07) K/mm3 RBC (4.63-6.08) M/mm3 Hgb (13.7-17.5) gm/dl Hct (40.1-51.0) % MCV (79.0-92.2) fl MCH (25.7-32.2) pg MCHC (32.2-35.5) g/dl RDW Std Deviation (35.1-43.9) fL Plt Count (163-337) K/mm3 MPV (9.4-12.3) fl Neut % (Auto) (34.0-67.9) % Lymph % (Auto) (21.8-53.1) % Gem % (Auto) (5.3-12.2) % Eos % (Auto) (0.8-7.0) Baso % (Auto) (0.1-1.2) % Neut # (Auto) (1.78-5.38) K/mm3 Lymph # (Auto) (1.32-3.57) K/mm3 Gem # (Auto) (0.30-0.82) K/mm3 Eos # (Auto) (0.04-0.54) K/mm3 Baso # (Auto) (0.01-0.08) K/mm3 Manual Slide Review PT (9.7-12.0) SECONDS INR Sodium (136-145) mEq/L Potassium (3.5-5.1) mEq/L Chloride (98-107) mEq/L Carbon Dioxide (21-32) mEq/L Anion Gap (5-15) BUN (7-18) mg/dL Creatinine (0.7-1.3) mg/dL Est Cr Clr Drug Dosing Estimated GFR (MDRD) (>60) mL/min BUN/Creatinine Ratio (14-18) Glucose (80-115) mg/dL Calcium (8.5-10.1) mg/dL Total Bilirubin (0.2-1.0) mg/dL Direct Bilirubin (0.0-0.2) mg/dl AST (15-37) U/L ALT (16-63) U/L Alkaline Phosphatase (46-116) U/L Ammonia 39 H (11-32) umol/L Total Protein (6.4-8.2) g/dl Albumin (3.4-5.0) g/dl Globulin gm/dL Albumin/Globulin Ratio (1-2) Result Diagrams: 10/07/19 10:45 10/07/19 10:45 Sepsis Event Note - Evaluation Sepsis Screening Result: No Definite Risk - Focused Exam Vital Signs: Vital Signs Temp Pulse Resp BP Pulse Ox 10/07/19 10:36 97.3 F 93 22 H 138/86 98 Date Exam was Performed: 10/07/19 Time Exam was Performed: 14:15 Problem List Initiated/Reviewed/Updated: Yes Orders Last 24hrs: Active Orders 24 hr Category Date Time Status Admission Status [Patient Status] [ADT] Routine ADT 10/07/19 11:24 Active Patient Status [ADT] Routine ADT 10/07/19 11:36 Active Antiembolic Devices [RC] PER UNIT ROUTINE Care 10/07/19 11:39 Active Cardiac Monitoring [RC] CONTINUOUS Care 10/07/19 11:36 Active Communication Order [RC] ASDIRECTED Care 10/07/19 11:36 Active Communication Order [RC] PRN Care 10/07/19 11:36 Active Enema [RC] Q2D Care 10/07/19 11:36 Active Head of Bed Elevation [RC] ASDIRECTED Care 10/07/19 11:36 Active Height and Weight [RC] 04 Care 10/07/19 11:36 Active Notify Provider Consults [RC] ASDIRECTED Care 10/07/19 11:58 Active Notify Provider [RC] PRN Care 10/07/19 11:36 Active Oxygen Therapy [RC] ASDIRECTED Care 10/07/19 11:36 Active Up to Chair [RC] ASDIRECTED Care 10/07/19 11:36 Active Vital Signs [RC] Q4HR Care 10/07/19 11:36 Active Consult to Physician [CONS] Routine Cons 10/07/19 11:56 Active 2 Gram Sodium Diet [DIET] Diet 10/07/19 Lunch Active CTA Abdomen W & W/O Contrast [Ang Abdomen] [CT] Urgent Exams 10/07/19 11:50 Ordered Echo Comp wo Cont [US] AM Exams 10/08/19 05:11 Ordered AMMONIA VENOUS [CHEM] Routine Lab 10/08/19 05:11 Ordered CBC WITH AUTO DIFF [HEME] AM Lab 10/08/19 05:11 Ordered CULTURE BLOOD [BC] Stat Lab 10/07/19 12:20 Received CULTURE BLOOD [BC] Stat Lab 10/07/19 12:25 Received FRESH FROZEN PLASMA [BBK] Routine Lab 10/07/19 10:45 Received INR,PT,PROTHROMBIN TIME [COAG] AM Lab 10/08/19 05:11 Ordered LIPID PANEL [CHEM] AM Lab 10/08/19 05:11 Ordered TSH [CHEM] AM Lab 10/08/19 05:11 Ordered TYPE AND SCREEN [BBK] Routine Lab 10/07/19 10:45 Received UA RFX MENG AND CULT IF INDIC [URIN] Stat Lab 10/07/19 10:35 Ordered Acetaminophen [Tylenol] Med 10/07/19 11:36 Active 650 mg PO Q6H PRN Acetaminophen [Tylenol] Med 10/07/19 11:36 Active 650 mg RECTAL Q6H PRN Albuterol [Proventil Neb Soln] Med 10/07/19 11:36 Active 2.5 mg NEB Q2H PRN Docusate Sodium/Sennosides [Senna Plus] Med 10/07/19 21:00 Active 2 tab PO BID Famotidine [Pepcid] Med 10/07/19 12:00 Active 20 mg PO Q12H Morphine Med 10/07/19 11:36 Active 2 mg IVPUSH Q4H PRN Ondansetron [Zofran] Med 10/07/19 11:36 Active 4 mg IVPUSH Q4H PRN Piperacillin/Tazobactam [Piperacil-Tazobact] 4.5 gm Med 10/07/19 18:00 Active Sodium Chloride 0.9% [Normal Saline] 100 ml IV Q8H Propranolol [Inderal] Med 10/07/19 21:00 Active 5 mg PO BID Sodium Chloride 0.9% [Saline Flush] Med 10/07/19 12:46 Active 10 ml FLUSH ASDIRECTED PRN Spironolactone [Aldactone] Med 10/07/19 21:00 Active 25 mg PO BID Sucralfate [Carafate] Med 10/07/19 21:00 Active 2 gm PO BEDTIME Tamsulosin [Flomax] Med 10/07/19 21:00 Active 0.4 mg PO BEDTIME diphenhydrAMINE [Benadryl] Med 10/07/19 11:36 Active 25 mg IVPUSH Q4H PRN hydrALAZINE [Apresoline] Med 10/07/19 11:36 Active 10 mg IVPUSH Q6H PRN polyethylene glycoL 3350 [MiraLAX] Med 10/08/19 09:00 Active 17 gm PO DAILY Antiembolic Hose [OM.PC] Routine Oth 10/07/19 11:36 Ordered Blood Culture x2 Reflex Set [OM.PC] Stat Oth 10/07/19 11:43 Ordered Seizure Precautions [OM.PC] Routine Oth 10/07/19 11:36 Ordered Transfuse Fresh Frozen Plasma [COMM] Routine Oth 10/07/19 11:54 Ordered Resuscitation Status Routine Resus Stat 10/07/19 11:36 Ordered Medication Orders Acetaminophen (Tylenol) 650 mg PO Q6H PRN PRN Reason: Pain (Mild 1-3) or Fever Acetaminophen (Tylenol) 650 mg RECTAL Q6H PRN PRN Reason: Pain (Mild 1-3) or Fever Albuterol (Proventil Neb Soln) 2.5 mg NEB Q2H PRN PRN Reason: Wheezing Diphenhydramine HCl (Benadryl) 25 mg IVPUSH Q4H PRN PRN Reason: Restlessness or Allergies Famotidine (Pepcid) 20 mg PO Q12H [facility] Last Admin: 10/07/19 12:38 Dose: 20 mg Hydralazine HCl (Apresoline) 10 mg IVPUSH Q6H PRN PRN Reason: Hypertension Piperacillin Sod/Tazobactam (Sod 4.5 gm/ Sodium Chloride) 100 mls @ 25 mls/hr IV Q8H [facility] Morphine Sulfate (Morphine) 2 mg IVPUSH Q4H PRN PRN Reason: Pain (severe 7-10) Ondansetron HCl (Zofran) 4 mg IVPUSH Q4H PRN PRN Reason: Nausea and Vomiting Polyethylene Glycol (Miralax) 17 gm PO DAILY [facility] Propranolol HCl (Inderal) 5 mg PO BID [facility] Senna/Docusate Sodium (Senna Plus) 2 tab PO BID [facility] Sodium Chloride (Saline Flush) 10 ml FLUSH ASDIRECTED PRN PRN Reason: Keep Vein Open Last Admin: 10/07/19 12:55 Dose: 10 ml Spironolactone (Aldactone) 25 mg PO BID [facility] Sucralfate (Carafate) 2 gm PO BEDTIME [facility] Tamsulosin HCl (Flomax) 0.4 mg PO BEDTIME [facility] Assessment/Plan Comment:: Assessment and plan: Abdominal distention possibly secondary to spontaneous bacterial peritonitis: Presents with 3 days of worsening bilateral lower extremity swelling along with abdominal distention. On physical exam patient noted with significant distention of abdomen slight tense diffuse discomfort noted. On presentation INR 1.6, patient not on any anticoagulation/coagulation, appears jaundiced. Plan will be to request that CT abdomen and pelvis with IV contrast to make sure no portal vein thrombosis and to evaluate extent of malignancy as well as ascites. Will transfuse 2 units of FFP, for possible spontaneous bacterial peritonitis, will request blood cultures, start patient on Zosyn, consult general surgeon Dr. Jackson paracentesis cultures. Cirrhosis: Patient noted with ascites as described above. Due to thrombocytopenia, no anticoagulation/coagulation will be given to patient, keep patient on propanolol 5 mg p.o. twice daily, hold for systolic blood pressure less than 90 heart rate less than 60, spinal lactone 25 mg p.o. twice daily. Will check patient's ammonia level daily. CHF with unknown ejection fraction: Physical exam, patient was orthopneic, noted with 2+ pitting edema bilaterally. Yesterday Lasix 40 mg IV push improved the patient's symptoms. For now, will request echocardiogram plan to begin diuresing the patient after patient's paracentesis for now continue to monitor replace electrolytes keep patient on telemetry. Nausea: Zofran 4 mg as needed nausea. GI prophylaxis: Protonix 40 mg p.o. every afternoon, Carafate 2 g p.o. nightly. DVT prophylaxis: Due to thrombocytopenia, hold off on anticoagulation/ coagulation for now. Pain/fever: Acetaminophen 650 mg as needed for pain/fever hydrocodone 5/325 1 tablet as needed moderate pain. Constipation prophylaxis: Senokot-S 2 tablets p.o. twice daily hold for diarrhea. CODE STATUS full code.
--- NOTE | 2019-10-07 14:30 | CT ---
CT abdomen and pelvis Technique: Multiple axial sections were obtained from above the dome of the diaphragm inferiorly to the iliac crest. Study was obtained as a three-phase exam. Intravenous contrast was utilized. No oral contrast has been given. Comparison: Previous MRI abdomen exam of 01/09/19. Findings: Liver is small in size and shows diffusely irregular surface contour compatible with cirrhosis. Spleen is enlarged with length of 19.9 cm. Spleen on prior MRI measured 21.2 cm. Severe amount of ascites is seen within the abdomen and visualized pelvis. Arterial phase imaging is more like a portal phase which shows opacification of the splenic vein and the main portal vein. No evidence of portal vein occlusion is seen at this time. Calcifications are seen within the caudate lobe in area of previous caudate lobe mass seen on MRI. Pancreas shows no discrete abnormality. Gallbladder contains no calcified gallstones. Adrenal glands show no nodule. Kidneys show symmetric contrast enhancement without hydronephrosis or mass. Aorta shows atherosclerotic calcification without aneurysm. No retroperitoneal adenopathy or mesenteric abnormalities are seen. No acute osseous finding is appreciated. Scattered degenerative change is noted within the spine. Impression: 1. Cirrhotic change. Splenomegaly not as severe as seen on prior MRI exam. 2. Calcification in area of previous mass within the caudate lobe presumably representing treated hepatocellular carcinoma. Please correlate. 3. Opacified splenic vein and portal vein without findings of portal vein thrombosis. 4. Severe ascites. Diagnostic code #3 This report was dictated in MDT
[2019-10-07] MEDS ORDERED: Sodium Chloride 0.9% 500 ML ONE (15:35)
[2019-10-07] MEDS ORDERED: Piperacillin/Tazobactam 4.5 GM in Sodium Chloride 0.9% 100 ML IV SCH (18:00)
[2019-10-07] MEDS ORDERED: Sucralfate 1 GM Tab PO SCH (21:00)
[2019-10-07] MEDS: Piperacillin/Tazobactam 4.5 GM in Sodium Chloride 0.9% 100 ML IV SCH (21:13)
[2019-10-07] MEDS: Spironolactone 25 MG Tab PO SCH (21:14)
[2019-10-07] MEDS: Tamsulosin 0.4 MG Cap.ER PO SCH ×2 (21:14→21:21)
[2019-10-07] MEDS: Propranolol 10 MG Tab PO SCH (21:14)
[2019-10-08] MEDS: Piperacillin/Tazobactam 4.5 GM in Sodium Chloride 0.9% 100 ML IV SCH ×2 (05:28→14:58)
[2019-10-08] MEDS: Famotidine 20 MG Tab PO SCH ×2 (05:29→17:11)
--- NOTE | 2019-10-08 08:39 | PCM.PN ---
- General Info Date of Service: 10/08/19 Admission Dx/Problem (Free Text): Admission Diagnosis/Problem Admission Diagnosis/Problem Ascites - Patient Data Vitals - Most Recent: Last Vital Signs Temp 97.7 F 10/08/19 07:16 Pulse 58 L 10/08/19 07:16 Resp 16 10/08/19 07:16 BP 116/73 10/08/19 07:16 Pulse Ox 95 10/08/19 07:16 Weight - Most Recent: 260 lb 4.8 oz I&O - Last 24 Hours: Intake & Output 10/07/19 10/08/19 10/08/19 22:59 06:59 14:59 Intake Total 1074 700 Output Total 0 500 Balance 1074 200 Lab Results Last 24 Hours: Laboratory Results - last 24 hr 10/07/19 10/07/19 10/07/19 Range/Units 10:45 10:45 10:45 WBC 4.47 (4.23-9.07) K/mm3 RBC 3.93 L (4.63-6.08) M/mm3 Hgb 13.8 (13.7-17.5) gm/dl Hct 39.6 L (40.1-51.0) % MCV 100.8 H (79.0-92.2) fl MCH 35.1 H (25.7-32.2) pg MCHC 34.8 (32.2-35.5) g/dl RDW Std Deviation 63.3 H (35.1-43.9) fL Plt Count 80 L (163-337) K/mm3 MPV 8.3 L (9.4-12.3) fl Neut % (Auto) 62.5 (34.0-67.9) % Lymph % (Auto) 19.0 L (21.8-53.1) % Bell % (Auto) 16.1 H (5.3-12.2) % Eos % (Auto) 1.8 (0.8-7.0) Baso % (Auto) 0.4 (0.1-1.2) % Neut # (Auto) 2.79 (1.78-5.38) K/mm3 Lymph # (Auto) 0.85 L (1.32-3.57) K/mm3 Bell # (Auto) 0.72 (0.30-0.82) K/mm3 Eos # (Auto) 0.08 (0.04-0.54) K/mm3 Baso # (Auto) 0.02 (0.01-0.08) K/mm3 Manual Slide Review Abnormal smear PT 18.2 H (9.7-12.0) SECONDS INR 1.72 Sodium 140 (136-145) mEq/L Potassium 3.5 (3.5-5.1) mEq/L Chloride 103 (98-107) mEq/L Carbon Dioxide 28 (21-32) mEq/L Anion Gap 12.5 (5-15) BUN 9 (7-18) mg/dL Creatinine 1.0 (0.7-1.3) mg/dL Est Cr Clr Drug Dosing TNP Estimated GFR (MDRD) > 60 (>60) mL/min BUN/Creatinine Ratio 9.0 L (14-18) Glucose 136 H (80-115) mg/dL Calcium 8.0 L (8.5-10.1) mg/dL Total Bilirubin 6.4 H (0.2-1.0) mg/dL Direct Bilirubin 2.70 H (0.0-0.2) mg/dl AST 56 H (15-37) U/L ALT 27 (16-63) U/L Alkaline Phosphatase 116 (46-116) U/L Ammonia (11-32) umol/L Total Protein 6.7 (6.4-8.2) g/dl Albumin 2.0 L (3.4-5.0) g/dl Globulin 4.7 gm/dL Albumin/Globulin Ratio 0.4 L (1-2) Triglycerides (<150) mg/dL Cholesterol (<200) mg/dL LDL Cholesterol Direct (<100) mg/dL HDL Cholesterol (40-59) mg/dL TSH 3rd Generation (0.358-3.74) uIU/mL Urine Color (Yellow) Urine Appearance (Clear) Urine pH (5.0-8.0) Ur Specific Brule (1.005-1.030) Urine Protein (Negative) Urine Glucose (UA) (Negative) Urine Ketones (Negative) Urine Occult Blood (Negative) Urine Nitrite (Negative) Urine Bilirubin (Negative) Urine Urobilinogen (0.2-1.0) Ur Leukocyte Esterase (Negative) Urine RBC (0-5) /hpf Urine WBC (0-5) /hpf Ur Squamous Epith Cells (0-5) /hpf Calcium Oxalate Crystal (NONE) Urine Bacteria (FEW) /hpf Urine Mucus (FEW) /hpf Blood Type Gel Antibody Screen 10/07/19 10/07/19 10/07/19 Range/Units 10:45 10:45 21:25 WBC (4.23-9.07) K/mm3 RBC (4.63-6.08) M/mm3 Hgb (13.7-17.5) gm/dl Hct (40.1-51.0) % MCV (79.0-92.2) fl MCH (25.7-32.2) pg MCHC (32.2-35.5) g/dl RDW Std Deviation (35.1-43.9) fL Plt Count (163-337) K/mm3 MPV (9.4-12.3) fl Neut % (Auto) (34.0-67.9) % Lymph % (Auto) (21.8-53.1) % Bell % (Auto) (5.3-12.2) % Eos % (Auto) (0.8-7.0) Baso % (Auto) (0.1-1.2) % Neut # (Auto) (1.78-5.38) K/mm3 Lymph # (Auto) (1.32-3.57) K/mm3 Bell # (Auto) (0.30-0.82) K/mm3 Eos # (Auto) (0.04-0.54) K/mm3 Baso # (Auto) (0.01-0.08) K/mm3 Manual Slide Review PT (9.7-12.0) SECONDS INR Sodium (136-145) mEq/L Potassium (3.5-5.1) mEq/L Chloride (98-107) mEq/L Carbon Dioxide (21-32) mEq/L Anion Gap (5-15) BUN (7-18) mg/dL Creatinine (0.7-1.3) mg/dL Est Cr Clr Drug Dosing Estimated GFR (MDRD) (>60) mL/min BUN/Creatinine Ratio (14-18) Glucose (80-115) mg/dL Calcium (8.5-10.1) mg/dL Total Bilirubin (0.2-1.0) mg/dL Direct Bilirubin (0.0-0.2) mg/dl AST (15-37) U/L ALT (16-63) U/L Alkaline Phosphatase (46-116) U/L Ammonia 39 H (11-32) umol/L Total Protein (6.4-8.2) g/dl Albumin (3.4-5.0) g/dl Globulin gm/dL Albumin/Globulin Ratio (1-2) Triglycerides (<150) mg/dL Cholesterol (<200) mg/dL LDL Cholesterol Direct (<100) mg/dL HDL Cholesterol (40-59) mg/dL TSH 3rd Generation (0.358-3.74) uIU/mL Urine Color Pam H (Yellow) Urine Appearance Clear (Clear) Urine pH 6.0 (5.0-8.0) Ur Specific Brule 1.020 (1.005-1.030) Urine Protein Negative (Negative) Urine Glucose (UA) Negative (Negative) Urine Ketones Negative (Negative) Urine Occult Blood Trace-lysed H (Negative) Urine Nitrite Negative (Negative) Urine Bilirubin 1+ H (Negative) Urine Urobilinogen 2.0 H (0.2-1.0) Ur Leukocyte Esterase Negative (Negative) Urine RBC 0-5 (0-5) /hpf Urine WBC 0-5 (0-5) /hpf Ur Squamous Epith Cells 0-5 (0-5) /hpf Calcium Oxalate Crystal Many H (NONE) Urine Bacteria Few (FEW) /hpf Urine Mucus Not seen (FEW) /hpf Blood Type O POSITIVE Gel Antibody Screen Negative 10/08/19 10/08/19 10/08/19 Range/Units 05:41 05:41 05:41 WBC 3.70 L (4.23-9.07) K/mm3 RBC 3.45 L (4.63-6.08) M/mm3 Hgb 12.0 L D (13.7-17.5) gm/dl Hct 35.6 L (40.1-51.0) % MCV 103.2 H (79.0-92.2) fl MCH 34.8 H (25.7-32.2) pg MCHC 33.7 (32.2-35.5) g/dl RDW Std Deviation 64.0 H (35.1-43.9) fL Plt Count 62 L (163-337) K/mm3 MPV 8.7 L (9.4-12.3) fl Neut % (Auto) 59.7 (34.0-67.9) % Lymph % (Auto) 20.3 L (21.8-53.1) % Bell % (Auto) 16.8 H (5.3-12.2) % Eos % (Auto) 2.7 (0.8-7.0) Baso % (Auto) 0.5 (0.1-1.2) % Neut # (Auto) 2.21 (1.78-5.38) K/mm3 Lymph # (Auto) 0.75 L (1.32-3.57) K/mm3 Bell # (Auto) 0.62 (0.30-0.82) K/mm3 Eos # (Auto) 0.10 (0.04-0.54) K/mm3 Baso # (Auto) 0.02 (0.01-0.08) K/mm3 Manual Slide Review Abnormal smear PT 18.8 H (9.7-12.0) SECONDS INR 1.78 Sodium (136-145) mEq/L Potassium (3.5-5.1) mEq/L Chloride (98-107) mEq/L Carbon Dioxide (21-32) mEq/L Anion Gap (5-15) BUN (7-18) mg/dL Creatinine (0.7-1.3) mg/dL Est Cr Clr Drug Dosing Estimated GFR (MDRD) (>60) mL/min BUN/Creatinine Ratio (14-18) Glucose (80-115) mg/dL Calcium (8.5-10.1) mg/dL Total Bilirubin (0.2-1.0) mg/dL Direct Bilirubin (0.0-0.2) mg/dl AST (15-37) U/L ALT (16-63) U/L Alkaline Phosphatase (46-116) U/L Ammonia (11-32) umol/L Total Protein (6.4-8.2) g/dl Albumin (3.4-5.0) g/dl Globulin gm/dL Albumin/Globulin Ratio (1-2) Triglycerides 51 (<150) mg/dL Cholesterol 52 (<200) mg/dL LDL Cholesterol Direct 35 (<100) mg/dL HDL Cholesterol 16.0 L (40-59) mg/dL TSH 3rd Generation 0.841 (0.358-3.74) uIU/mL Urine Color (Yellow) Urine Appearance (Clear) Urine pH (5.0-8.0) Ur Specific Brule (1.005-1.030) Urine Protein (Negative) Urine Glucose (UA) (Negative) Urine Ketones (Negative) Urine Occult Blood (Negative) Urine Nitrite (Negative) Urine Bilirubin (Negative) Urine Urobilinogen (0.2-1.0) Ur Leukocyte Esterase (Negative) Urine RBC (0-5) /hpf Urine WBC (0-5) /hpf Ur Squamous Epith Cells (0-5) /hpf Calcium Oxalate Crystal (NONE) Urine Bacteria (FEW) /hpf Urine Mucus (FEW) /hpf Blood Type Gel Antibody Screen 10/08/19 Range/Units 05:41 WBC (4.23-9.07) K/mm3 RBC (4.63-6.08) M/mm3 Hgb (13.7-17.5) gm/dl Hct (40.1-51.0) % MCV (79.0-92.2) fl MCH (25.7-32.2) pg MCHC (32.2-35.5) g/dl RDW Std Deviation (35.1-43.9) fL Plt Count (163-337) K/mm3 MPV (9.4-12.3) fl Neut % (Auto) (34.0-67.9) % Lymph % (Auto) (21.8-53.1) % Bell % (Auto) (5.3-12.2) % Eos % (Auto) (0.8-7.0) Baso % (Auto) (0.1-1.2) % Neut # (Auto) (1.78-5.38) K/mm3 Lymph # (Auto) (1.32-3.57) K/mm3 Bell # (Auto) (0.30-0.82) K/mm3 Eos # (Auto) (0.04-0.54) K/mm3 Baso # (Auto) (0.01-0.08) K/mm3 Manual Slide Review PT (9.7-12.0) SECONDS INR Sodium (136-145) mEq/L Potassium (3.5-5.1) mEq/L Chloride (98-107) mEq/L Carbon Dioxide (21-32) mEq/L Anion Gap (5-15) BUN (7-18) mg/dL Creatinine (0.7-1.3) mg/dL Est Cr Clr Drug Dosing Estimated GFR (MDRD) (>60) mL/min BUN/Creatinine Ratio (14-18) Glucose (80-115) mg/dL Calcium (8.5-10.1) mg/dL Total Bilirubin (0.2-1.0) mg/dL Direct Bilirubin (0.0-0.2) mg/dl AST (15-37) U/L ALT (16-63) U/L Alkaline Phosphatase (46-116) U/L Ammonia 55 H (11-32) umol/L Total Protein (6.4-8.2) g/dl Albumin (3.4-5.0) g/dl Globulin gm/dL Albumin/Globulin Ratio (1-2) Triglycerides (<150) mg/dL Cholesterol (<200) mg/dL LDL Cholesterol Direct (<100) mg/dL HDL Cholesterol (40-59) mg/dL TSH 3rd Generation (0.358-3.74) uIU/mL Urine Color (Yellow) Urine Appearance (Clear) Urine pH (5.0-8.0) Ur Specific Brule (1.005-1.030) Urine Protein (Negative) Urine Glucose (UA) (Negative) Urine Ketones (Negative) Urine Occult Blood (Negative) Urine Nitrite (Negative) Urine Bilirubin (Negative) Urine Urobilinogen (0.2-1.0) Ur Leukocyte Esterase (Negative) Urine RBC (0-5) /hpf Urine WBC (0-5) /hpf Ur Squamous Epith Cells (0-5) /hpf Calcium Oxalate Crystal (NONE) Urine Bacteria (FEW) /hpf Urine Mucus (FEW) /hpf Blood Type Gel Antibody Screen Med Orders - Current: Current Medications Acetaminophen (Tylenol) 650 mg PO Q6H PRN PRN Reason: Pain (Mild 1-3) or Fever Last Admin: 10/08/19 03:48 Dose: 650 mg Acetaminophen (Tylenol) 650 mg RECTAL Q6H PRN PRN Reason: Pain (Mild 1-3) or Fever Albuterol (Proventil Neb Soln) 2.5 mg NEB Q2H PRN PRN Reason: Wheezing Diphenhydramine HCl (Benadryl) 25 mg IVPUSH Q4H PRN PRN Reason: Restlessness or Allergies Famotidine (Pepcid) 20 mg PO Q12H [facility] Last Admin: 10/08/19 05:29 Dose: 20 mg Hydralazine HCl (Apresoline) 10 mg IVPUSH Q6H PRN PRN Reason: Hypertension Piperacillin Sod/Tazobactam (Sod 4.5 gm/ Sodium Chloride) 100 mls @ 25 mls/hr IV Q8H [facility] Last Admin: 10/08/19 05:28 Dose: 25 mls/hr Morphine Sulfate (Morphine) 2 mg IVPUSH Q4H PRN PRN Reason: Pain (severe 7-10) Ondansetron HCl (Zofran) 4 mg IVPUSH Q4H PRN PRN Reason: Nausea and Vomiting Polyethylene Glycol (Miralax) 17 gm PO DAILY [facility] Propranolol HCl (Inderal) 5 mg PO BID [facility] Last Admin: 10/07/19 21:14 Dose: 5 mg Senna/Docusate Sodium (Senna Plus) 2 tab PO BID [facility] Last Admin: 10/07/19 21:14 Dose: Not Given Sodium Chloride (Saline Flush) 10 ml FLUSH ASDIRECTED PRN PRN Reason: Keep Vein Open Last Admin: 10/07/19 12:55 Dose: 10 ml Spironolactone (Aldactone) 25 mg PO BID [facility] Last Admin: 10/07/19 21:14 Dose: 25 mg Sucralfate (Carafate) 2 gm PO BEDTIME [facility] Last Admin: 10/07/19 21:20 Dose: Not Given Tamsulosin HCl (Flomax) 0.4 mg PO BEDTIME [facility] Last Admin: 10/07/19 21:21 Dose: Not Given Discontinued Medications Famotidine (Pepcid) 20 mg PO Q12H [facility] Last Admin: 10/07/19 12:38 Dose: 20 mg Piperacillin Sod/Tazobactam (Sod 4.5 gm/ Sodium Chloride) 100 mls @ 25 mls/hr IV Q8H [facility] Last Admin: 10/07/19 22:54 Dose: Not Given Piperacillin Sod/Tazobactam (Sod 4.5 gm/ Sodium Chloride) 100 mls @ 200 mls/hr IV ONETIME ONE Stop: 10/07/19 12:29 Last Admin: 10/07/19 12:38 Dose: 200 mls/hr Sodium Chloride (Normal Saline) 60 mls @ 4 mls/sec IV ONETIME ONE Stop: 10/07/19 12:47 Last Admin: 10/07/19 12:55 Dose: 4 mls/sec Sodium Chloride (Normal Saline) Confirm Administered Dose 500 mls @ as directed .ROUTE .STK-MED ONE Stop: 10/07/19 15:36 Last Admin: 10/07/19 21:20 Dose: Not Given Iopamidol (Isovue-370 (76%)) 100 ml IVPUSH ONETIME ONE Stop: 10/07/19 12:47 Last Admin: 10/07/19 12:55 Dose: 100 ml Sepsis Event Note - Evaluation Sepsis Screening Result: No Definite Risk - Focused Exam Vital Signs: Vital Signs Temp Pulse Resp BP Pulse Ox 10/08/19 07:16 97.7 F 58 L 16 116/73 95 10/08/19 03:43 97.5 F 61 16 111/76 94 L 10/08/19 01:01 97.5 F 59 L 16 92 L 10/08/19 00:30 97.9 F 59 L 18 103/67 94 L 10/07/19 21:14 68 133/71 Date Exam was Performed: 10/08/19 Time Exam was Performed: 08:39 - Plan Plan:: Assessment and plan: Abdominal distention possibly secondary to spontaneous bacterial peritonitis: Presents with 3 days of worsening bilateral lower extremity swelling along with abdominal distention. On physical exam patient noted with significant distention of abdomen slight tense diffuse discomfort noted. On presentation INR 1.6, patient not on any anticoagulation/coagulation, appears jaundiced. Plan will be to request that CT abdomen and pelvis with IV contrast to make sure no portal vein thrombosis and to evaluate extent of malignancy as well as ascites. Will transfuse 2 units of FFP, for possible spontaneous bacterial peritonitis, will request blood cultures, start patient on Zosyn, consult general surgeon Dr. Jackson paracentesis cultures. Cirrhosis: Patient noted with ascites as described above. Due to thrombocytopenia, no anticoagulation/coagulation will be given to patient, keep patient on propanolol 5 mg p.o. twice daily, hold for systolic blood pressure less than 90 heart rate less than 60, spinal lactone 25 mg p.o. twice daily. Will check patient's ammonia level daily. CHF with unknown ejection fraction: Physical exam, patient was orthopneic, noted with 2+ pitting edema bilaterally. Yesterday Lasix 40 mg IV push improved the patient's symptoms. For now, will request echocardiogram plan to begin diuresing the patient after patient's paracentesis for now continue to monitor replace electrolytes keep patient on telemetry. Nausea: Zofran 4 mg as needed nausea. GI prophylaxis: Protonix 40 mg p.o. every afternoon, Carafate 2 g p.o. nightly. DVT prophylaxis: Due to thrombocytopenia, hold off on anticoagulation/ coagulation for now. Pain/fever: Acetaminophen 650 mg as needed for pain/fever hydrocodone 5/325 1 tablet as needed moderate pain. Constipation prophylaxis: Senokot-S 2 tablets p.o. twice daily hold for diarrhea. CODE STATUS full code.
[2019-10-08] MEDS ORDERED: Polyethylene Glycol 3350 Powder 17 GM Packet PO SCH (09:00)
--- NOTE | 2019-10-08 09:12 | HP ---
DATE OF ADMISSION: 10/07/2019 ADDENDUM: CHIEF COMPLAINT: Abdominal distention, abdominal discomfort, shortness of breath on minimal exertion. PAST MEDICAL HISTORY: Significant for: 1. History of hepatitis C, history of hepatocellular carcinoma, under targeted experimental chemotherapy in [place]. 2. Diabetes type 2. 3. Smoking dependency. Patient was seen, examined, and discussed by me with Elie Edwards PA-C. The patient is a 64-year-old white male with past medical history as above, but now had 2 rounds of chemotherapy and was planned for third round on [facility], 2 weeks ago. The patient had to miss this round because of COVID pandemic situation. Overall, patient was feeling okay up to 4 days ago when patient noticed that his abdominal distention suddenly started getting significantly worse. Patient felt discomfort in his abdomen and started having shortness of breath on minimal exertion. Finally, on 10/06/2019, patient came to emergency room for evaluation. Evaluation in the emergency room revealed a very tense, very large ascites, slight tenderness to palpation throughout the abdomen. No fever. White blood cells were normal, but given the patient's history and clinical presentation, the patient was suspected for spontaneous bacterial peritonitis and needed other workup that included also a basic oncology workup and CT scan in concern of possibility of venous or splenic vein thrombosis. In the emergency room, the patient was assessed. We gave the patient 1 dose of Levaquin 500 mg IV. The patient was also found with other signs of fluid overload beyond ascites that consistent with acute on top of chronic CHF and 1 dose of Lasix 40 mg IV push was given. The patient was planned for admission, but he absolutely refused admission because he needed to do some home errands, so patient signed out AMA, but was strongly advised to come back for admission tomorrow if his condition not improving. Indeed today, the patient reported, again reports shortness of breath, it got sort of worse, abdominal distention and vague abdominal pain still there, so we will admit patient to med/surg for telemetry with diagnosis strongly suspected spontaneous bacterial peritonitis, tense ascites, acute on top of chronic CHF with unknown left ventricular ejection fraction for further workup and management. Until the management, patient will be started on IV Zosyn, IV fluids, though will be a very limited because of signs of CHF. We will consult Surgery for paracentesis. Ascitic fluid will be sent for cultures, CBC, protein, and glucose. After paracentesis is done, we will transfuse patient with albumin at least 25 g and we will start cautious diuresis trying not to drop blood pressure and not to worsen the perfusion. By this time, we hopefully have results of abdomen/pelvis CT with and without contrast to decide about the need for anticoagulation if the patient actually found with splenic or hepatic vein thrombosis. Concerning factor is thrombocytopenia of 18 the patient was found with on yesterday's admission to emergency room and this needs to be closely watched. Anticipated hospital stay is 3 to 4 days if patient immediately responds to therapy and no striking unexpected findings on further tests requested. For details of patient's history, clinical presentation, test results, physical exam, medications, and further plan of management, please see patient note prepared by Elie Edwards PA-C, that I discussed with Elie in details at time of admission visit. MMODAL /[id number]
[2019-10-08] MEDS: Albumin 25% 12.5 GM/50 ML BAG IV SCH ×4 (10:58→13:00)
[2019-10-08] MEDS: Spironolactone 25 MG Tab PO SCH (11:04)
[2019-10-08] MEDS: Propranolol 10 MG Tab PO SCH (11:04)
--- NOTE | 2019-10-08 11:25 | PCM.DCSUM1 ---
Discharge Summary - Hospital Course HPI Initial Comments: Mr. Karl lopez 64-year-old male, with past medical history significant for cancer currently on chemotherapy. Reported he was diagnosed back in February 2019 with liver cancer. Reported prior history of hepatitis C. Stated he has been doing chemotherapy, was supposed to follow-up back with crisis therapist in [place] prior to [facility] for additional round of chemotherapy but due to the coronavirus has not been able to do so. Reported about 3 days ago, he started noticing increased swelling in both lower extremities at the same time noticed worsening of abdominal distention. Per the patient, he has never had this amount of distention has never required paracentesis in the past. Stated some shortness of breath especially with exertion, reports mild orthopnea denied any obvious fevers or chills, no nausea vomiting. Was concerned for worsening abdominal swelling so came to the ED initially yesterday where patient was advised to be admitted to the hospital bed at this time patient stated he had something to do we will come back today. Patient came back today noted with still abdominal distention, slight jaundice today compared to yesterday. WBC 1.4, H&H 13.8/39.6, platelets 80 INR 1.7 compared to 1.6 yesterday. Sodium/potassium 140/2.5 chloride 102 228, BUN/creatinine 9/ 1.0 random glucose 136, total bilirubin 6.4, direct bilirubin 2.7 AST/ALT 56/27 alkaline phosphatase 116 with ammonia of 39. Given this presentation patient will be admitted with chief complaint abdominal distention possibly secondary to spontaneous ileus, and CHF with mild exacerbation for further work-up and management. Diagnosis: Stroke: No - Discharge Data Discharge Date: 10/08/19 (Admit date:10/07/19) Discharge Disposition: Home, Self-Care 01 Condition: Good - Referral to Home Health Primary Care Physician: PCP None - Patient Summary/Data Consults: Consultations 10/07/19 11:56 Consult to Physician [CONS] Routine 10/08/19 09:23 Consult to [employer] [CONS] Routine - Discharge Plan Home Medications: Home Meds . [No Known Home Meds] 10/06/19 [History] Patient Handouts: Ascites, Steps to Quit Smoking Forms: ED Department Discharge Referrals: Pelon Acosta MD [Physician] - - Patient Data Vitals - Most Recent: Last Vital Signs Temp 97.7 F 10/08/19 07:16 Pulse 58 L 10/08/19 07:16 Resp 16 10/08/19 07:16 BP 116/73 10/08/19 07:16 Pulse Ox 95 10/08/19 07:16 Weight - Most Recent: 260 lb 4.8 oz I&O - Last 24 hours: Intake & Output 10/07/19 10/08/19 10/08/19 22:59 06:59 14:59 Intake Total 1074 700 Output Total 0 500 Balance 1074 200 Lab Results - Last 24 hrs: Laboratory Results - last 24 hr 10/07/19 10/07/19 10/07/19 Range/Units 10:45 10:45 10:45 WBC 4.47 (4.23-9.07) K/mm3 RBC 3.93 L (4.63-6.08) M/mm3 Hgb 13.8 (13.7-17.5) gm/dl Hct 39.6 L (40.1-51.0) % MCV 100.8 H (79.0-92.2) fl MCH 35.1 H (25.7-32.2) pg MCHC 34.8 (32.2-35.5) g/dl RDW Std Deviation 63.3 H (35.1-43.9) fL Plt Count 80 L (163-337) K/mm3 MPV 8.3 L (9.4-12.3) fl Neut % (Auto) 62.5 (34.0-67.9) % Lymph % (Auto) 19.0 L (21.8-53.1) % [place] % (Auto) 16.1 H (5.3-12.2) % Eos % (Auto) 1.8 (0.8-7.0) Baso % (Auto) 0.4 (0.1-1.2) % Neut # (Auto) 2.79 (1.78-5.38) K/mm3 Lymph # (Auto) 0.85 L (1.32-3.57) K/mm3 [place] # (Auto) 0.72 (0.30-0.82) K/mm3 Eos # (Auto) 0.08 (0.04-0.54) K/mm3 Baso # (Auto) 0.02 (0.01-0.08) K/mm3 Manual Slide Review Abnormal smear PT 18.2 H (9.7-12.0) SECONDS INR 1.72 Direct Bilirubin 2.70 H (0.0-0.2) mg/dl Ammonia (11-32) umol/L Triglycerides (<150) mg/dL Cholesterol (<200) mg/dL LDL Cholesterol Direct (<100) mg/dL HDL Cholesterol (40-59) mg/dL TSH 3rd Generation (0.358-3.74) uIU/mL Urine Color (Yellow) Urine Appearance (Clear) Urine pH (5.0-8.0) Ur Specific [place] (1.005-1.030) Urine Protein (Negative) Urine Glucose (UA) (Negative) Urine Ketones (Negative) Urine Occult Blood (Negative) Urine Nitrite (Negative) Urine Bilirubin (Negative) Urine Urobilinogen (0.2-1.0) Ur Leukocyte Esterase (Negative) Urine RBC (0-5) /hpf Urine WBC (0-5) /hpf Ur Squamous Epith Cells (0-5) /hpf Calcium Oxalate Crystal (NONE) Urine Bacteria (FEW) /hpf Urine Mucus (FEW) /hpf Blood Type Gel Antibody Screen 10/07/19 10/07/19 10/07/19 Range/Units 10:45 10:45 21:25 WBC (4.23-9.07) K/mm3 RBC (4.63-6.08) M/mm3 Hgb (13.7-17.5) gm/dl Hct (40.1-51.0) % MCV (79.0-92.2) fl MCH (25.7-32.2) pg MCHC (32.2-35.5) g/dl RDW Std Deviation (35.1-43.9) fL Plt Count (163-337) K/mm3 MPV (9.4-12.3) fl Neut % (Auto) (34.0-67.9) % Lymph % (Auto) (21.8-53.1) % [place] % (Auto) (5.3-12.2) % Eos % (Auto) (0.8-7.0) Baso % (Auto) (0.1-1.2) % Neut # (Auto) (1.78-5.38) K/mm3 Lymph # (Auto) (1.32-3.57) K/mm3 [place] # (Auto) (0.30-0.82) K/mm3 Eos # (Auto) (0.04-0.54) K/mm3 Baso # (Auto) (0.01-0.08) K/mm3 Manual Slide Review PT (9.7-12.0) SECONDS INR Direct Bilirubin (0.0-0.2) mg/dl Ammonia 39 H (11-32) umol/L Triglycerides (<150) mg/dL Cholesterol (<200) mg/dL LDL Cholesterol Direct (<100) mg/dL HDL Cholesterol (40-59) mg/dL TSH 3rd Generation (0.358-3.74) uIU/mL Urine Color Pam H (Yellow) Urine Appearance Clear (Clear) Urine pH 6.0 (5.0-8.0) Ur Specific [place] 1.020 (1.005-1.030) Urine Protein Negative (Negative) Urine Glucose (UA) Negative (Negative) Urine Ketones Negative (Negative) Urine Occult Blood Trace-lysed H (Negative) Urine Nitrite Negative (Negative) Urine Bilirubin 1+ H (Negative) Urine Urobilinogen 2.0 H (0.2-1.0) Ur Leukocyte Esterase Negative (Negative) Urine RBC 0-5 (0-5) /hpf Urine WBC 0-5 (0-5) /hpf Ur Squamous Epith Cells 0-5 (0-5) /hpf Calcium Oxalate Crystal Many H (NONE) Urine Bacteria Few (FEW) /hpf Urine Mucus Not seen (FEW) /hpf Blood Type O POSITIVE Gel Antibody Screen Negative 10/08/19 10/08/19 10/08/19 Range/Units 05:41 05:41 05:41 WBC 3.70 L (4.23-9.07) K/mm3 RBC 3.45 L (4.63-6.08) M/mm3 Hgb 12.0 L D (13.7-17.5) gm/dl Hct 35.6 L (40.1-51.0) % MCV 103.2 H (79.0-92.2) fl MCH 34.8 H (25.7-32.2) pg MCHC 33.7 (32.2-35.5) g/dl RDW Std Deviation 64.0 H (35.1-43.9) fL Plt Count 62 L (163-337) K/mm3 MPV 8.7 L (9.4-12.3) fl Neut % (Auto) 59.7 (34.0-67.9) % Lymph % (Auto) 20.3 L (21.8-53.1) % [place] % (Auto) 16.8 H (5.3-12.2) % Eos % (Auto) 2.7 (0.8-7.0) Baso % (Auto) 0.5 (0.1-1.2) % Neut # (Auto) 2.21 (1.78-5.38) K/mm3 Lymph # (Auto) 0.75 L (1.32-3.57) K/mm3 [place] # (Auto) 0.62 (0.30-0.82) K/mm3 Eos # (Auto) 0.10 (0.04-0.54) K/mm3 Baso # (Auto) 0.02 (0.01-0.08) K/mm3 Manual Slide Review Abnormal smear PT 18.8 H (9.7-12.0) SECONDS INR 1.78 Direct Bilirubin (0.0-0.2) mg/dl Ammonia (11-32) umol/L Triglycerides 51 (<150) mg/dL Cholesterol 52 (<200) mg/dL LDL Cholesterol Direct 35 (<100) mg/dL HDL Cholesterol 16.0 L (40-59) mg/dL TSH 3rd Generation 0.841 (0.358-3.74) uIU/mL Urine Color (Yellow) Urine Appearance (Clear) Urine pH (5.0-8.0) Ur Specific [place] (1.005-1.030) Urine Protein (Negative) Urine Glucose (UA) (Negative) Urine Ketones (Negative) Urine Occult Blood (Negative) Urine Nitrite (Negative) Urine Bilirubin (Negative) Urine Urobilinogen (0.2-1.0) Ur Leukocyte Esterase (Negative) Urine RBC (0-5) /hpf Urine WBC (0-5) /hpf Ur Squamous Epith Cells (0-5) /hpf Calcium Oxalate Crystal (NONE) Urine Bacteria (FEW) /hpf Urine Mucus (FEW) /hpf Blood Type Gel Antibody Screen 10/08/19 Range/Units 05:41 WBC (4.23-9.07) K/mm3 RBC (4.63-6.08) M/mm3 Hgb (13.7-17.5) gm/dl Hct (40.1-51.0) % MCV (79.0-92.2) fl MCH (25.7-32.2) pg MCHC (32.2-35.5) g/dl RDW Std Deviation (35.1-43.9) fL Plt Count (163-337) K/mm3 MPV (9.4-12.3) fl Neut % (Auto) (34.0-67.9) % Lymph % (Auto) (21.8-53.1) % [place] % (Auto) (5.3-12.2) % Eos % (Auto) (0.8-7.0) Baso % (Auto) (0.1-1.2) % Neut # (Auto) (1.78-5.38) K/mm3 Lymph # (Auto) (1.32-3.57) K/mm3 [place] # (Auto) (0.30-0.82) K/mm3 Eos # (Auto) (0.04-0.54) K/mm3 Baso # (Auto) (0.01-0.08) K/mm3 Manual Slide Review PT (9.7-12.0) SECONDS INR Direct Bilirubin (0.0-0.2) mg/dl Ammonia 55 H (11-32) umol/L Triglycerides (<150) mg/dL Cholesterol (<200) mg/dL LDL Cholesterol Direct (<100) mg/dL HDL Cholesterol (40-59) mg/dL TSH 3rd Generation (0.358-3.74) uIU/mL Urine Color (Yellow) Urine Appearance (Clear) Urine pH (5.0-8.0) Ur Specific [place] (1.005-1.030) Urine Protein (Negative) Urine Glucose (UA) (Negative) Urine Ketones (Negative) Urine Occult Blood (Negative) Urine Nitrite (Negative) Urine Bilirubin (Negative) Urine Urobilinogen (0.2-1.0) Ur Leukocyte Esterase (Negative) Urine RBC (0-5) /hpf Urine WBC (0-5) /hpf Ur Squamous Epith Cells (0-5) /hpf Calcium Oxalate Crystal (NONE) Urine Bacteria (FEW) /hpf Urine Mucus (FEW) /hpf Blood Type Gel Antibody Screen Med Orders - Current: Current Medications Acetaminophen (Tylenol) 650 mg PO Q6H PRN PRN Reason: Pain (Mild 1-3) or Fever Last Admin: 10/08/19 03:48 Dose: 650 mg Acetaminophen (Tylenol) 650 mg RECTAL Q6H PRN PRN Reason: Pain (Mild 1-3) or Fever Albuterol (Proventil Neb Soln) 2.5 mg NEB Q2H PRN PRN Reason: Wheezing Diphenhydramine HCl (Benadryl) 25 mg IVPUSH Q4H PRN PRN Reason: Restlessness or Allergies Famotidine (Pepcid) 20 mg PO Q12H [facility] Last Admin: 10/08/19 05:29 Dose: 20 mg Hydralazine HCl (Apresoline) 10 mg IVPUSH Q6H PRN PRN Reason: Hypertension Piperacillin Sod/Tazobactam (Sod 4.5 gm/ Sodium Chloride) 100 mls @ 25 mls/hr IV Q8H [facility] Last Admin: 10/08/19 05:28 Dose: 25 mls/hr Albumin Human (Flexbumin 25%) 12.5 gm in 50 mls @ 100 mls/hr IV Q30M [facility] Stop: 10/08/19 12:39 Last Admin: 10/08/19 10:58 Dose: 100 mls/hr Morphine Sulfate (Morphine) 2 mg IVPUSH Q4H PRN PRN Reason: Pain (severe 7-10) Ondansetron HCl (Zofran) 4 mg IVPUSH Q4H PRN PRN Reason: Nausea and Vomiting Polyethylene Glycol (Miralax) 17 gm PO DAILY [facility] Last Admin: 10/08/19 11:05 Dose: Not Given Propranolol HCl (Inderal) 5 mg PO BID [facility] Last Admin: 10/08/19 11:04 Dose: Not Given Senna/Docusate Sodium (Senna Plus) 2 tab PO BID [facility] Last Admin: 10/08/19 11:05 Dose: Not Given Sodium Chloride (Saline Flush) 10 ml FLUSH ASDIRECTED PRN PRN Reason: Keep Vein Open Last Admin: 10/07/19 12:55 Dose: 10 ml Spironolactone (Aldactone) 25 mg PO BID [facility] Last Admin: 10/08/19 11:04 Dose: Not Given Sucralfate (Carafate) 2 gm PO BEDTIME [facility] Last Admin: 10/07/19 21:20 Dose: Not Given Tamsulosin HCl (Flomax) 0.4 mg PO BEDTIME [facility] Last Admin: 10/07/19 21:21 Dose: Not Given Discontinued Medications Famotidine (Pepcid) 20 mg PO Q12H [facility] Last Admin: 10/07/19 12:38 Dose: 20 mg Piperacillin Sod/Tazobactam (Sod 4.5 gm/ Sodium Chloride) 100 mls @ 25 mls/hr IV Q8H [facility] Last Admin: 10/07/19 22:54 Dose: Not Given Piperacillin Sod/Tazobactam (Sod 4.5 gm/ Sodium Chloride) 100 mls @ 200 mls/hr IV ONETIME ONE Stop: 10/07/19 12:29 Last Admin: 10/07/19 12:38 Dose: 200 mls/hr Sodium Chloride (Normal Saline) 60 mls @ 4 mls/sec IV ONETIME ONE Stop: 10/07/19 12:47 Last Admin: 10/07/19 12:55 Dose: 4 mls/sec Sodium Chloride (Normal Saline) Confirm Administered Dose 500 mls @ as directed .ROUTE .STK-MED ONE Stop: 10/07/19 15:36 Last Admin: 10/07/19 21:20 Dose: Not Given Iopamidol (Isovue-370 (76%)) 100 ml IVPUSH ONETIME ONE Stop: 10/07/19 12:47 Last Admin: 10/07/19 12:55 Dose: 100 ml
--- NOTE | 2019-10-08 11:37 | PCM.DCSUM1 ---
Discharge Summary - Hospital Course HPI Initial Comments: Mr. Karl lopez 64-year-old male, with past medical history significant for cancer currently on chemotherapy. Reported he was diagnosed back in February 2019 with liver cancer. Reported prior history of hepatitis C. Stated he has been doing chemotherapy, was supposed to follow-up back with manager stylist in [place] prior to [facility] for additional round of chemotherapy but due to the coronavirus has not been able to do so. Reported about 3 days ago, he started noticing increased swelling in both lower extremities at the same time noticed worsening of abdominal distention. Per the patient, he has never had this amount of distention has never required paracentesis in the past. Stated some shortness of breath especially with exertion, reports mild orthopnea denied any obvious fevers or chills, no nausea vomiting. Was concerned for worsening abdominal swelling so came to the ED initially yesterday where patient was advised to be admitted to the hospital bed at this time patient stated he had something to do we will come back today. Patient came back today noted with still abdominal distention, slight jaundice today compared to yesterday. WBC 1.4, H&H 13.8/39.6, platelets 80 INR 1.7 compared to 1.6 yesterday. Sodium/potassium 140/2.5 chloride 102 228, BUN/creatinine 9/ 1.0 random glucose 136, total bilirubin 6.4, direct bilirubin 2.7 AST/ALT 56/27 alkaline phosphatase 116 with ammonia of 39. Given this presentation patient will be admitted with chief complaint abdominal distention possibly secondary to spontaneous ileus, and CHF with mild exacerbation for further work-up and management. Diagnosis: Stroke: No - Discharge Data Discharge Date: 10/08/19 (Admit date: 10/07/19) Discharge Disposition: Home, Self-Care 01 Condition: Good - Referral to Home Health Primary Care Physician: PCP None - Discharge Diagnosis/Problem(s) (1) Ascites, malignant SNOMED Code(s): 415430086 ICD Code: R18.0 - MALIGNANT ASCITES Status: Acute Priority: High Current Visit: Yes (2) Liver cancer SNOMED Code(s): 55523038 ICD Code: C22.9 - MALIG NEOPLASM OF LIVER, NOT SPECIFIED PRIMARY OR SEC Status: Acute Priority: High Current Visit: Yes Qualifiers: Liver malignancy type: unspecified liver malignancy Qualified Code(s): C22.9 - Malignant neoplasm of liver, not specified as primary or secondary (3) Edema SNOMED Code(s): 270494783, 772308391 ICD Code: R60.9 - EDEMA, UNSPECIFIED Status: Acute Priority: High Current Visit: Yes Qualifiers: Edema type: unspecified Qualified Code(s): R60.9 - Edema, unspecified (4) Suspected CHF (congestive heart failure) SNOMED Code(s): 141489830, 275521694 ICD Code: R09.89 - OTH SYMPTOMS AND SIGNS INVOLVING THE CIRC AND RESP SYSTEMS Status: Acute Priority: High Current Visit: Yes (5) S/P abdominal paracentesis SNOMED Code(s): 033698123 ICD Code: Z98.890 - OTHER SPECIFIED POSTPROCEDURAL STATES Status: Acute Priority: High Current Visit: Yes (6) Hyperammonemia SNOMED Code(s): 0187053 ICD Code: E72.20 - DISORDER OF UREA CYCLE METABOLISM, UNSPECIFIED Status: Acute Priority: High Current Visit: Yes (7) Type II diabetes mellitus SNOMED Code(s): 19506077 ICD Code: E11.9 - TYPE 2 DIABETES MELLITUS WITHOUT COMPLICATIONS Status: Acute Priority: High Current Visit: Yes Qualifiers: Diabetes mellitus senior scientist insulin use: without [facility] use Diabetes mellitus complication status: with other specified complication Qualified Code (s): E11.69 - Type 2 diabetes mellitus with other specified complication (8) Heart murmur SNOMED Code(s): 91326700 ICD Code: R01.1 - CARDIAC MURMUR, UNSPECIFIED Status: Chronic Priority: Medium Current Visit: Yes - Patient Summary/Data Consults: Consultations 10/07/19 11:56 Consult to Physician [CONS] Routine 10/08/19 09:23 Consult to Licensed Investment Sales Assistant [CONS] Routine Labs Pending at D/C: Echocardiogram obtained 10/08/19 and is pending Abdominal fluid culture, AFB, and fluid albumin are still pending Recommended Follow-up Testing/Procedures: Recommend follow-up with PCP within 5-7 days of discharge, sooner if needed. -Recommend repeat CBC, CMP, Ammonia, Magnesium, Phosphorous at that appointment. Recommend follow-up with hepatology in [place] as soon as able. Hospital Course: Jeremie was the floor due to abdominal pain and severe abdominal distention with ascites. He does have known liver cancer and is undergoing treatment for this. He was supposed to follow-up with hepatology recently but because of concerns for travel and COVID-19 he canceled his appointment. He was started on Zosyn due to concerns over SBP. His abdomen was tender and very distended but there is been no fever or leukocytosis. Placed on a fluid restricted diet given 2 units of FFP. Abdomen CTA was obtained on 10/07/19 showing "1. Cirrhotic change. Splenomegaly not as severe as seen on prior MRI exam. 2. Calcification in the area of previous mass within the caudate lobe assumably representing treated hepatocellular carcinoma. Please correlate. 3. Opacified splenic vein and portal vein without finding of portal vein thrombus. 4. Severe ascites." Lipid panel showed a normal triglyceride, total cholesterol, and LDL however a low HDL was noted. TSH was within normal limits. Dr. Jackson, general surgeon, was consulted and performed a paracentesis today, extracting 11 L of fluid from the patient's abdomen. Goal was for 3 to 4 L due to concerns over fluid shift. Since this time patient's blood pressure has been on the low end of normal but he has been asymptomatic. Paracentesis fluid was light yellow and hazy with a pH of 8.0, WBC of 0.21, segmented neutrophils elevated at 42.0, lymphocytes normal at 51.0. Monocytes normal at 8.0. Glucose 91, protein less than 2.0, LDH 82. LEEROY negative. Culture, AFB, and fluid albumin are still pending. He was given 50 g of albumin after his paracentesis. Blood cultures have been negative x1 day. Echo was obtained today, 10/08/2019, and is still pending. To be followed up with by the primary care provider. He was started on 5 mg twice daily propranolol and 25 mg p.o. twice daily Spironolactone as well 0.4 mg p.o. at bedtime Flomax. His ammonia was elevated at 55 he was started on 20 g daily p.o. lactulose. Original plan was for the patient to remain hospitalized overnight and discharge in the morning so we could monitor his blood pressure, abdomen, and labs. Unfortunately the patient is adamantly against this plan. He reports that he was unable to obtain a good night sleep due to back pain from our bed. He states he tried to lay on the couch as well as in the chair and nothing could relieve his pain. He is willing to do what ever we want in terms of testing and treatment but reports he will be leaving tonight prior to bedtime. He is aware that there are outstanding tests that could change his plan of care. Because of this and concerns for the patient he will be discharged cautiously but not made to leave AMA. Patient has been switched to p.o. Cipro 500 mg twice daily for 5 days and 500 mg 3 times daily Flagyl p.o. for 5 days. He will also start [id number] lasix 20mg on discharge. He was instructed of the importance to immediately return to the emergency room should he notice any signs of infection such as fever, nausea and vomiting, chills, etc. He was advised to monitor his blood pressure at home 3 times a day and check his weight daily, recording this all into a journal and bring it with to his medical appointments. We discussed seeking care should his blood pressure become too low. He was instructed on the importance of following up with his primary care provider along with hepatology in [place]. Continue a 2 g sodium restricted diet. He did see our dietitian prior to discharge and was instructed that he may follow-up with them outpatient if he needs. Multiple attempts were made at trying to get the patient to stay 1 more night however he continued to refuse. He was then discharged today. - Patient Instructions Diet: Low Sodium Diet, Other: 2 gm Activity: As Tolerated Driving: Do Not Drive Showering/Bathing: May Shower Notify Provider of: Fever, Increased Pain, Nausea and/or Vomiting Other/Special Instructions: Follow-up with primary care provider within 5-7 days of discharge, sooner if needed. Recommend your follow-up with hepatology in [place] as soon as able. Take all new medications as precribed. Watch your sodium intake. You should be below 2 grams daily. As we discussed, we would really like you to stay one more night due to concerns over fluid shift from your paracentesis. You have repeatedly told us you will not stay due to difficulty finding a comfortable area for sleep. We recommend you take your blood pressure three times a day until you follow-up with your primary care provider. We also recommend you take your weight daily. Record all of this and bring it with to all medical appointments. Should you notice any symptoms such as fever, chills, re-accumulation of fluid in your abdomen, nausea and vomtiting , or very low blood pressures, contact your primary care provider or return to the Emergency Department. - Discharge Plan *PRESCRIPTION DRUG MONITORING PROGRAM REVIEWED*: No *COPY OF PRESCRIPTION DRUG MONITORING REPORT IN PATIENT ARTEM: No Prescriptions/Med Rec: Ciprofloxacin HCl [Cipro] 500 mg PO BID #10 tablet Furosemide [Lasix] 20 mg PO ASDIRECTED #15 tab Lactulose [Cephulac] 20 gm PO DAILY #3 cup metroNIDAZOLE [Flagyl] 500 mg PO TID #15 tab Propranolol [Inderal] 5 mg PO BID #30 tablet Spironolactone [Aldactone] 25 mg PO BID #30 tablet Tamsulosin [Flomax] 0.4 mg PO BEDTIME #20 cap.er Home Medications: Home Meds Ciprofloxacin HCl [Cipro] 500 mg PO BID #10 tablet 10/08/19 [Rx] Furosemide [Lasix] 20 mg PO ASDIRECTED #15 tab 10/08/19 [Rx] Lactulose [Cephulac] 20 gm PO DAILY #3 cup 10/08/19 [Rx] Propranolol [Inderal] 5 mg PO BID #30 tablet 10/08/19 [Rx] Spironolactone [Aldactone] 25 mg PO BID #30 tablet 10/08/19 [Rx] Tamsulosin [Flomax] 0.4 mg PO BEDTIME #20 cap.er 10/08/19 [Rx] metroNIDAZOLE [Flagyl] 500 mg PO TID #15 tab 10/08/19 [Rx] Oxygen Therapy Mode: Room Air Patient Handouts: Ascites, Low-Sodium Eating Plan, Steps to Quit Smoking Forms: ED Department Discharge Referrals: Pelon Acosta MD [Physician] - - Discharge Summary/Plan Comment DC Time >30 min.: Yes (45 mins ) - General Info Date of Service: 10/08/19 Admission Dx/Problem (Free Text: Admission Diagnosis/Problem Admission Diagnosis/Problem Ascites Functional Status: Reports: Pain Controlled, Tolerating Diet, Ambulating, Urinating. Denies: New Symptoms - Review of Systems General: Reports: No Symptoms. Denies: Fever, Weakness, Fatigue, Malaise, Chills HEENT: Reports: No Symptoms. Denies: Headaches, Sore Throat Pulmonary: Reports: No Symptoms. Denies: Shortness of Breath, Pleuritic Chest Pain, Cough, Sputum Cardiovascular: Reports: Edema. Denies: Chest Pain, Palpitations, Dyspnea on Exertion Gastrointestinal: Reports: No Symptoms. Denies: Abdominal Pain, Constipation, Diarrhea, Nausea, Vomiting Genitourinary: Reports: No Symptoms. Denies: Pain Musculoskeletal: Reports: No Symptoms Skin: Reports: No Symptoms. Denies: Cyanosis Neurological: Reports: No Symptoms. Denies: Confusion, Difficulty Walking, Gait Disturbance Psychiatric: Reports: No Symptoms - Patient Data Vitals - Most Recent: Last Vital Signs Temp 97.7 F 10/08/19 07:16 Pulse 58 L 10/08/19 07:16 Resp 16 10/08/19 07:16 BP 116/73 10/08/19 07:16 Pulse Ox 95 10/08/19 07:16 Weight - Most Recent: 260 lb 4.8 oz I&O - Last 24 hours: Intake & Output 10/07/19 10/08/19 10/08/19 22:59 06:59 14:59 Intake Total 1074 700 Output Total 0 500 Balance 1074 200 Lab Results - Last 24 hrs: Laboratory Results - last 24 hr 10/07/19 10/07/19 10/07/19 Range/Units 10:45 10:45 10:45 WBC (4.23-9.07) K/mm3 RBC (4.63-6.08) M/mm3 Hgb (13.7-17.5) gm/dl Hct (40.1-51.0) % MCV (79.0-92.2) fl MCH (25.7-32.2) pg MCHC (32.2-35.5) g/dl RDW Std Deviation (35.1-43.9) fL Plt Count (163-337) K/mm3 MPV (9.4-12.3) fl Neut % (Auto) (34.0-67.9) % Lymph % (Auto) (21.8-53.1) % [place] % (Auto) (5.3-12.2) % Eos % (Auto) (0.8-7.0) Baso % (Auto) (0.1-1.2) % Neut # (Auto) (1.78-5.38) K/mm3 Lymph # (Auto) (1.32-3.57) K/mm3 [place] # (Auto) (0.30-0.82) K/mm3 Eos # (Auto) (0.04-0.54) K/mm3 Baso # (Auto) (0.01-0.08) K/mm3 Manual Slide Review Abnormal smear PT 18.2 H (9.7-12.0) SECONDS INR 1.72 Direct Bilirubin 2.70 H (0.0-0.2) mg/dl Ammonia (11-32) umol/L Triglycerides (<150) mg/dL Cholesterol (<200) mg/dL LDL Cholesterol Direct (<100) mg/dL HDL Cholesterol (40-59) mg/dL TSH 3rd Generation (0.358-3.74) uIU/mL Urine Color (Yellow) Urine Appearance (Clear) Urine pH (5.0-8.0) Ur Specific [place] (1.005-1.030) Urine Protein (Negative) Urine Glucose (UA) (Negative) Urine Ketones (Negative) Urine Occult Blood (Negative) Urine Nitrite (Negative) Urine Bilirubin (Negative) Urine Urobilinogen (0.2-1.0) Ur Leukocyte Esterase (Negative) Urine RBC (0-5) /hpf Urine WBC (0-5) /hpf Ur Squamous Epith Cells (0-5) /hpf Calcium Oxalate Crystal (NONE) Urine Bacteria (FEW) /hpf Urine Mucus (FEW) /hpf Blood Type Gel Antibody Screen 10/07/19 10/07/19 10/07/19 Range/Units 10:45 10:45 21:25 WBC (4.23-9.07) K/mm3 RBC (4.63-6.08) M/mm3 Hgb (13.7-17.5) gm/dl Hct (40.1-51.0) % MCV (79.0-92.2) fl MCH (25.7-32.2) pg MCHC (32.2-35.5) g/dl RDW Std Deviation (35.1-43.9) fL Plt Count (163-337) K/mm3 MPV (9.4-12.3) fl Neut % (Auto) (34.0-67.9) % Lymph % (Auto) (21.8-53.1) % [place] % (Auto) (5.3-12.2) % Eos % (Auto) (0.8-7.0) Baso % (Auto) (0.1-1.2) % Neut # (Auto) (1.78-5.38) K/mm3 Lymph # (Auto) (1.32-3.57) K/mm3 [place] # (Auto) (0.30-0.82) K/mm3 Eos # (Auto) (0.04-0.54) K/mm3 Baso # (Auto) (0.01-0.08) K/mm3 Manual Slide Review PT (9.7-12.0) SECONDS INR Direct Bilirubin (0.0-0.2) mg/dl Ammonia 39 H (11-32) umol/L Triglycerides (<150) mg/dL Cholesterol (<200) mg/dL LDL Cholesterol Direct (<100) mg/dL HDL Cholesterol (40-59) mg/dL TSH 3rd Generation (0.358-3.74) uIU/mL Urine Color Pam H (Yellow) Urine Appearance Clear (Clear) Urine pH 6.0 (5.0-8.0) Ur Specific [place] 1.020 (1.005-1.030) Urine Protein Negative (Negative) Urine Glucose (UA) Negative (Negative) Urine Ketones Negative (Negative) Urine Occult Blood Trace-lysed H (Negative) Urine Nitrite Negative (Negative) Urine Bilirubin 1+ H (Negative) Urine Urobilinogen 2.0 H (0.2-1.0) Ur Leukocyte Esterase Negative (Negative) Urine RBC 0-5 (0-5) /hpf Urine WBC 0-5 (0-5) /hpf Ur Squamous Epith Cells 0-5 (0-5) /hpf Calcium Oxalate Crystal Many H (NONE) Urine Bacteria Few (FEW) /hpf Urine Mucus Not seen (FEW) /hpf Blood Type O POSITIVE Gel Antibody Screen Negative 10/08/19 10/08/19 10/08/19 Range/Units 05:41 05:41 05:41 WBC 3.70 L (4.23-9.07) K/mm3 RBC 3.45 L (4.63-6.08) M/mm3 Hgb 12.0 L D (13.7-17.5) gm/dl Hct 35.6 L (40.1-51.0) % MCV 103.2 H (79.0-92.2) fl MCH 34.8 H (25.7-32.2) pg MCHC 33.7 (32.2-35.5) g/dl RDW Std Deviation 64.0 H (35.1-43.9) fL Plt Count 62 L (163-337) K/mm3 MPV 8.7 L (9.4-12.3) fl Neut % (Auto) 59.7 (34.0-67.9) % Lymph % (Auto) 20.3 L (21.8-53.1) % [place] % (Auto) 16.8 H (5.3-12.2) % Eos % (Auto) 2.7 (0.8-7.0) Baso % (Auto) 0.5 (0.1-1.2) % Neut # (Auto) 2.21 (1.78-5.38) K/mm3 Lymph # (Auto) 0.75 L (1.32-3.57) K/mm3 [place] # (Auto) 0.62 (0.30-0.82) K/mm3 Eos # (Auto) 0.10 (0.04-0.54) K/mm3 Baso # (Auto) 0.02 (0.01-0.08) K/mm3 Manual Slide Review Abnormal smear PT 18.8 H (9.7-12.0) SECONDS INR 1.78 Direct Bilirubin (0.0-0.2) mg/dl Ammonia (11-32) umol/L Triglycerides 51 (<150) mg/dL Cholesterol 52 (<200) mg/dL LDL Cholesterol Direct 35 (<100) mg/dL HDL Cholesterol 16.0 L (40-59) mg/dL TSH 3rd Generation 0.841 (0.358-3.74) uIU/mL Urine Color (Yellow) Urine Appearance (Clear) Urine pH (5.0-8.0) Ur Specific [place] (1.005-1.030) Urine Protein (Negative) Urine Glucose (UA) (Negative) Urine Ketones (Negative) Urine Occult Blood (Negative) Urine Nitrite (Negative) Urine Bilirubin (Negative) Urine Urobilinogen (0.2-1.0) Ur Leukocyte Esterase (Negative) Urine RBC (0-5) /hpf Urine WBC (0-5) /hpf Ur Squamous Epith Cells (0-5) /hpf Calcium Oxalate Crystal (NONE) Urine Bacteria (FEW) /hpf Urine Mucus (FEW) /hpf Blood Type Gel Antibody Screen 10/08/19 Range/Units 05:41 WBC (4.23-9.07) K/mm3 RBC (4.63-6.08) M/mm3 Hgb (13.7-17.5) gm/dl Hct (40.1-51.0) % MCV (79.0-92.2) fl MCH (25.7-32.2) pg MCHC (32.2-35.5) g/dl RDW Std Deviation (35.1-43.9) fL Plt Count (163-337) K/mm3 MPV (9.4-12.3) fl Neut % (Auto) (34.0-67.9) % Lymph % (Auto) (21.8-53.1) % [place] % (Auto) (5.3-12.2) % Eos % (Auto) (0.8-7.0) Baso % (Auto) (0.1-1.2) % Neut # (Auto) (1.78-5.38) K/mm3 Lymph # (Auto) (1.32-3.57) K/mm3 [place] # (Auto) (0.30-0.82) K/mm3 Eos # (Auto) (0.04-0.54) K/mm3 Baso # (Auto) (0.01-0.08) K/mm3 Manual Slide Review PT (9.7-12.0) SECONDS INR Direct Bilirubin (0.0-0.2) mg/dl Ammonia 55 H (11-32) umol/L Triglycerides (<150) mg/dL Cholesterol (<200) mg/dL LDL Cholesterol Direct (<100) mg/dL HDL Cholesterol (40-59) mg/dL TSH 3rd Generation (0.358-3.74) uIU/mL Urine Color (Yellow) Urine Appearance (Clear) Urine pH (5.0-8.0) Ur Specific [place] (1.005-1.030) Urine Protein (Negative) Urine Glucose (UA) (Negative) Urine Ketones (Negative) Urine Occult Blood (Negative) Urine Nitrite (Negative) Urine Bilirubin (Negative) Urine Urobilinogen (0.2-1.0) Ur Leukocyte Esterase (Negative) Urine RBC (0-5) /hpf Urine WBC (0-5) /hpf Ur Squamous Epith Cells (0-5) /hpf Calcium Oxalate Crystal (NONE) Urine Bacteria (FEW) /hpf Urine Mucus (FEW) /hpf Blood Type Gel Antibody Screen Med Orders - Current: Current Medications Acetaminophen (Tylenol) 650 mg PO Q6H PRN PRN Reason: Pain (Mild 1-3) or Fever Last Admin: 10/08/19 03:48 Dose: 650 mg Acetaminophen (Tylenol) 650 mg RECTAL Q6H PRN PRN Reason: Pain (Mild 1-3) or Fever Albuterol (Proventil Neb Soln) 2.5 mg NEB Q2H PRN PRN Reason: Wheezing Diphenhydramine HCl (Benadryl) 25 mg IVPUSH Q4H PRN PRN Reason: Restlessness or Allergies Famotidine (Pepcid) 20 mg PO Q12H [facility] Last Admin: 10/08/19 05:29 Dose: 20 mg Hydralazine HCl (Apresoline) 10 mg IVPUSH Q6H PRN PRN Reason: Hypertension Piperacillin Sod/Tazobactam (Sod 4.5 gm/ Sodium Chloride) 100 mls @ 25 mls/hr IV Q8H [facility] Last Admin: 10/08/19 05:28 Dose: 25 mls/hr Albumin Human (Flexbumin 25%) 12.5 gm in 50 mls @ 100 mls/hr IV Q30M [facility] Stop: 10/08/19 12:39 Last Admin: 10/08/19 10:58 Dose: 100 mls/hr Morphine Sulfate (Morphine) 2 mg IVPUSH Q4H PRN PRN Reason: Pain (severe 7-10) Ondansetron HCl (Zofran) 4 mg IVPUSH Q4H PRN PRN Reason: Nausea and Vomiting Polyethylene Glycol (Miralax) 17 gm PO DAILY [facility] Last Admin: 10/08/19 11:05 Dose: Not Given Propranolol HCl (Inderal) 5 mg PO BID [facility] Last Admin: 10/08/19 11:04 Dose: Not Given Senna/Docusate Sodium (Senna Plus) 2 tab PO BID [facility] Last Admin: 10/08/19 11:05 Dose: Not Given Sodium Chloride (Saline Flush) 10 ml FLUSH ASDIRECTED PRN PRN Reason: Keep Vein Open Last Admin: 10/07/19 12:55 Dose: 10 ml Spironolactone (Aldactone) 25 mg PO BID [facility] Last Admin: 10/08/19 11:04 Dose: Not Given Sucralfate (Carafate) 2 gm PO BEDTIME [facility] Last Admin: 10/07/19 21:20 Dose: Not Given Tamsulosin HCl (Flomax) 0.4 mg PO BEDTIME [facility] Last Admin: 10/07/19 21:21 Dose: Not Given Discontinued Medications Famotidine (Pepcid) 20 mg PO Q12H [facility] Last Admin: 10/07/19 12:38 Dose: 20 mg Piperacillin Sod/Tazobactam (Sod 4.5 gm/ Sodium Chloride) 100 mls @ 25 mls/hr IV Q8H [facility] Last Admin: 10/07/19 22:54 Dose: Not Given Piperacillin Sod/Tazobactam (Sod 4.5 gm/ Sodium Chloride) 100 mls @ 200 mls/hr IV ONETIME ONE Stop: 10/07/19 12:29 Last Admin: 10/07/19 12:38 Dose: 200 mls/hr Sodium Chloride (Normal Saline) 60 mls @ 4 mls/sec IV ONETIME ONE Stop: 10/07/19 12:47 Last Admin: 10/07/19 12:55 Dose: 4 mls/sec Sodium Chloride (Normal Saline) Confirm Administered Dose 500 mls @ as directed .ROUTE .STK-MED ONE Stop: 10/07/19 15:36 Last Admin: 10/07/19 21:20 Dose: Not Given Iopamidol (Isovue-370 (76%)) 100 ml IVPUSH ONETIME ONE Stop: 10/07/19 12:47 Last Admin: 10/07/19 12:55 Dose: 100 ml - Exam Quality Assessment: Reports: DVT Prophylaxis General: Reports: Alert, Oriented, Cooperative, No Acute Distress, Other ( Jaundiced ) HEENT: Reports: Pupils Equal, Pupils Reactive, Mucous Membr. Moist/[place], Scleral Icterus Neck: Reports: Supple, Trachea Midline Lungs: Reports: Clear to Auscultation, Normal Respiratory Effort, Decreased Breath Sounds Cardiovascular: Reports: Regular Rate, Regular Rhythm, Murmurs GI/Abdominal Exam: Normal Bowel Sounds, Soft, Non-Tender, Hepatomegaly, Other (s /p paracentesis ) (Male) Exam: Deferred Rectal (Males) Exam: Deferred Back Exam: Reports: Normal Inspection, Full Range of Motion Extremities: Normal Inspection, Normal Range of Motion, Non-Tender, Normal Capillary Refill, Pedal Edema (2-3+) Skin: Reports: Warm, Dry, Intact Neurological: Reports: No New Focal Deficit Psy/Mental Status: Reports: Alert, Normal Affect, Normal Mood
--- NOTE | 2019-10-08 11:41 | PCM.PRNOTE ---
- Free Text/Narrative Note: Date: 10/08/2019 Procedure: paracentesis Surgeon: Rom Jackson MD Indication: symptomatic ascites Detailed Report: Informed consent was obtained. Time out was performed, and the LLQ was prepped and draped in sterile fashion. 5 cc 1 % lidocaine was injected intradermally at the LLQ, and the needle was then inserted into the abdominal cavity. Clear yellow ascites was aspirated. The tract through the abdominal wall was anesthetized. A small stab incision was made at this site, and the paracentesis catheter on a needle was inserted slowly and carefully. Ascitic fluid was aspirated, and the catheter was advanced over the needle into the peritoneal cavity. The needle was withdrawn, and the catheter connected to tubing and vacuum bottles. A total of 11 L clear yellow ascitic fluid was drained. Samples were collected for cytology and microbial analysis. The catheter was then removed, and a sterile dressing of gauze and tegaderm applied. Rom Jackson MD General Surgery
[2019-10-08] MEDS ORDERED: Furosemide 20 MG Tab PO ONE ×2 (15:46→17:00)
--- NOTE | 2019-10-09 08:05 | DISCH ---
ADMISSION DATE: 10/07/2019 DISCHARGE DATE: 10/08/2019 ADDENDUM: FINAL DIAGNOSIS: 1. Spontaneous bacterial peritonitis/worsening of ascites/ pansinusitis (paracentesis was done by Dr. Jackson on 10/08/2019). 2. History of hepatitis C. 3. Hepatocellular carcinoma under targeted experimental chemotherapy in [place]. 4. Diabetes type 2. 5. Smoking dependency. 6. Noncompliance with medications and recommendations. 7. New onset of acute congestive heart failure, probably with preserved left ventricular ejection fraction (echo report is pending by the time of dictation of this note). The patient was seen, examined, and discussed by me with Zaid Cruz PA-C. HOSPITAL COURSE: The patient is an unfortunate 64-year-old white male with hepatitis C and hepatocellular carcinoma, initially came to emergency room on 10/06/2019 where he was found with dense ascites, signs of fluid overload, and strongly suspected for spontaneous bacterial peritonitis. At this moment, the patient received 1 dose of Lasix 40 mg IV push. He did have some relief of fluid overload and had negative fluid balance 1.7 L within 3 hours. In the emergency room, he received 1 dose of Levaquin 500 mg IV, but absolutely refused to be admitted because of some house errands, but he agreed to come back to emergency room on 10/07/2019. When the patient came back, condition was pretty much the same. We admitted the patient to med/surg floor. We gave the patient a dose of Lasix. We started the patient on Zosyn, and the patient was consulted by Surgery for diagnostic and therapeutic tap. Paracentesis was done by Dr. Jackson on 10/08/2019, and 11 L of hazy ascitic fluid was removed. We assessed results and it looks like even after 2 days of antibiotics, the patient still had elevated neutrophils at 42, even though it was the impression that the patient's spontaneous bacterial peritonitis was gradually improving after 2 days of IV antibiotics. The patient would benefit from additional 1 or even 2 days of IV antibiotics, if he keeps trend for improvement, but he absolutely refused to stay in the hospital anymore nights because he cannot sleep in the hospital. Keeping in consideration the patient's best interest, we decided not to aggravate the situation to signing an AMA by the patient. Instead, we gave the patient 50 g of albumin, trying to compensate protein losses from massive paracentesis. Fortunately, blood pressure remained stable. We will continue antibiotics IV up to late night. We will keep watching the patient clinically, and if no acute issues, the patient will be discharged home on p.o. antibiotics, Cipro 500 mg twice a day and Flagyl 500 mg p.o. 3 times a day, even though again this is suboptimal treatment, but we were forced to pursue this because of the patient's noncompliance. The patient warned to come back immediately to the hospital if he has any fevers, any worsening of abdominal pain, or sudden increase in abdominal distention. He vocalized understanding about this. In concern of the patient's fluid retention and acute on top of chronic CHF, echocardiogram is pending. We expect diastolic dysfunction. Upon discharge, the patient will be on small doses of Lasix 20 mg p.o. every other day. This hopefully will slow down progression of fluid reaccumulation. We will also recommend propranolol 20 mg p.o. twice a day and spironolactone 25 mg daily, also trying to somewhat decrease portal hypertension. For details of the patient's history, clinical presentation, test results, physical exam, course of hospital stay, discharge medications, and recommendations, please see discharge summary and discharge instructions prepared by Zaid Cruz PA-C. Throughout hospital stay, on the day of discharge, the patient was consulted about smoking cessation. He vocalized understanding and hopefully will stop smoking. Nicotine patch is advised to facilitate smoking abstinence. Total time spent in smoking cessation counseling was longer than 3 minutes. VLAD /[id number]
[2019-10-09] MEDS ORDERED: Lactulose Soln 10 GM/15 ML 30 ML UD Cup PO SCH (09:00)
== END 2019-10-08 19:59 | disposition home or self-care (01) | DRG 371 ==
LOC: JD.ED 10:28 → JD.MS 11:24
PROVIDERS: ADMIT Internal Medicine; ATTEND Internal Medicine
PROC: 30233L1 Transfusion of Nonautologous Fresh Plasma into Peripheral Vein, Percutaneous Approach (ICD-10-PCS; 2019-10-07)
PROC: 0W9G30Z Drainage of Peritoneal Cavity with Drainage Device, Percutaneous Approach (ICD-10-PCS; principal; 2019-10-08)
DX: C22.8 Malignant neoplasm of liver, primary, unspecified as to type (principal); K65.2 Spontaneous bacterial peritonitis; E11.9 Type 2 diabetes mellitus without complications; I50.33 Acute on chronic diastolic (congestive) heart failure; R18.0 Malignant ascites; K56.7 Ileus, unspecified; E72.20 Disorder of urea cycle metabolism, unspecified; C22.0 Liver cell carcinoma; J32.4 Chronic pansinusitis; E11.69 Type 2 diabetes mellitus with other specified complication; K74.60 Unspecified cirrhosis of liver; D69.6 Thrombocytopenia, unspecified; K59.00 Constipation, unspecified; F17.210 Nicotine dependence, cigarettes, uncomplicated; Z79.899 Other long term (current) drug therapy; Z86.19 Personal history of other infectious and parasitic diseases; Z91.14 Patient's other noncompliance with medication regimen
CPT/HCPCS: 36415; 36430; 74175; 74175-26; 80053; 80061; 81001; 82140; 82248; 82945; 83615; 83986; 84157; 84443; 85025; 85610; 86850; 86900; 86901; 87040; 87070; 87205; 87220; 89050; 93306; 99283; 99285-25; A9270-GY; J2543; J7050; P9017; P9047; Q9967

== ENCOUNTER 2019-11-13 12:45 | Emergency (ER) | payer MEDICARE, OTHER ==
--- NOTE | 2019-11-13 14:10 | EDM.PDOC ---
ED HPI GENERAL MEDICAL PROBLEM - General Chief Complaint: Abdominal Pain Stated Complaint: RETAINING FLUID IN ABDOMEN Time Seen by Provider: 11/13/19 12:54 Source of Information: Reports: Patient History Limitations: Reports: No Limitations - History of Present Illness INITIAL COMMENTS - FREE TEXT/NARRATIVE: The patient presents with abdominal distention and shortness of breath. He has a history of hepatitis C and liver cancer. He had radiation at the [facility] and there was some destruction of blood vessels and now he has ascities. He was admitted here about 6 weeks ago and had a paracentesis. He felt good after that. He feels that he needs another paracentesis. He has some shortness of breath with the distention. He has no fever, chills, cough, congestion, runny nose, nausea or vomiting. He says he does not have much abdominal pain with this. Onset: Gradual Duration: Day(s): Severity: Moderate Improves with: Reports: None Worsens with: Reports: None Associated Symptoms: Reports: Shortness of Breath. Denies: Chest Pain, Cough, Fever/Chills, Headaches, Nausea/Vomiting Abdomen Pain Score (Numeric/FACES): 1 - Related Data Allergies Allergy/AdvReac Type Severity Reaction Status Date / Time No Known Allergies Allergy Verified 10/07/19 10:42 Home Meds: Home Meds Propranolol [Inderal] 5 mg PO BID #30 tablet 10/08/19 [Rx] Amoxicillin/Clavulanate K [Augmentin 875-125 MG] 1 tab PO BID #14 tablet [Rx] Past Medical History Cardiovascular History: Reports: Heart Murmur, Hypertension Gastrointestinal History: Reports: Other (See Below) Other Gastrointestinal History: ascites Psychiatric History: Reports: Anxiety, Depression Endocrine/Metabolic History: Reports: Diabetes, Type II Oncologic (Cancer) History: Reports: Liver - Infectious Disease History Infectious Disease History: Reports: Measles - Past Surgical History Cardiovascular Surgical History: Reports: None Social & Family History - Family History Family Medical History: Noncontributory - Tobacco Use Smoking Status *Q: Current Every Day Smoker Years of Tobacco use: 50 Packs/Tins Daily: 0.4 - Caffeine Use Caffeine Use: Reports: Soda - Recreational Drug Use Recreational Drug Use: No ED ROS GENERAL - Review of Systems Review Of Systems: See Below Constitutional: Reports: No Symptoms HEENT: Reports: No Symptoms Respiratory: Reports: Shortness of Breath. Denies: Cough Cardiovascular: Reports: No Symptoms Endocrine: Reports: No Symptoms GI/Abdominal: Reports: Other (abdominal distention) : Reports: No Symptoms Musculoskeletal: Reports: No Symptoms ED EXAM, GI/ABD - Physical Exam Exam: See Below Exam Limited By: No Limitations General Appearance: Alert, No Apparent Distress Ears: Normal External Exam Nose: Normal Inspection Head: Atraumatic, Normocephalic Neck: Normal Inspection Respiratory/Chest: No Respiratory Distress, Lungs Clear, Normal Breath Sounds Cardiovascular: Regular Rate, Rhythm, No Edema, No Murmur GI/Abdominal Exam: Soft, Non-Tender, No Organomegaly, No Mass Back Exam: Normal Inspection Extremities: Normal Inspection Neurological: Alert, Oriented, No Motor/Sensory Deficits Course - Vital Signs Last Recorded V/S: Last Vital Signs Temp 97.6 F 11/13/19 13:03 Pulse 60 11/13/19 13:03 Resp 20 11/13/19 13:03 BP 140/84 11/13/19 13:03 Pulse Ox 100 11/13/19 13:03 - Re-Assessments/Exams Free Text/Narrative Re-Assessment/Exam: 11/13/19 17:17 I did a peracentesis and got out about 11L. He is doing good. I will discharge him home. Departure - Departure Time of Disposition: 17:20 Disposition: Home, Self-Care 01 Condition: Good Clinical Impression: Ascites Qualifiers: Ascites type: other type Qualified Code(s): R18.8 - Other ascites - Discharge Information *PRESCRIPTION DRUG MONITORING PROGRAM REVIEWED*: Not Applicable *COPY OF PRESCRIPTION DRUG MONITORING REPORT IN PATIENT ARTEM: Not Applicable Prescriptions: Amoxicillin/Clavulanate K [Augmentin 875-125 MG] 1 tab PO BID #14 tablet Referrals: Pelon Acosta MD [Primary Care Provider] - 1 Week Forms: ED Department Discharge Additional Instructions: Take your medication as prescribed. Take the augmentin 2 times per day for 7 days. Please return if you are worse. Sepsis Event Note - Evaluation Sepsis Screening Result: No Definite Risk - Focused Exam Vital Signs: Vital Signs Temp Pulse Resp BP Pulse Ox 11/13/19 13:03 97.6 F 60 20 140/84 100 Date Exam was Performed: 11/13/19 Time Exam was Performed: 17:16 Paracentesis - Paracentesis Paracentesis Indication: ascites Location: LLQ Skin prep: CDC/MBT Guidelines, Sterile Drapes, Chlorhexidine Ultrasound guided: Yes Local anesthesia: lidocaine 1 % Local anesthesia volume: 5cc Number of Attempts: 1 Device Used: 8 Fr kit device Fluid: yellow, clear Aspirated volume (mls): 9,000 Complications: No Dressing: other (Dermabond)
== END 2019-11-13 17:35 | disposition home or self-care (01) ==
LOC: JD.ED 12:45
DX: R18.8 Other ascites (principal); E11.9 Type 2 diabetes mellitus without complications; F17.210 Nicotine dependence, cigarettes, uncomplicated
CPT/HCPCS: 49083; 99283; 99283-25

== ENCOUNTER 2019-11-28 16:32 | Emergency (ER) | payer MEDICARE, OTHER ==
--- NOTE | 2019-11-28 18:24 | EDM.PDOC ---
ED HPI GENERAL MEDICAL PROBLEM - General Chief Complaint: Abdominal Pain Stated Complaint: ABDOMINAL BLOATING Time Seen by Provider: 11/28/19 16:52 Source of Information: Reports: Patient History Limitations: Reports: No Limitations - History of Present Illness INITIAL COMMENTS - FREE TEXT/NARRATIVE: The patient presents with ascities, abdominal distention and shortness of francisco th. This has been going on for months. He has a history of hepatitis C and cancer. He had radiation at [facility] and they destroyed some blood vessels that led to ascities. He was admitted to the hospital a couple months ago and had a paracentesis. He was here about 3 weeks ago and had a paracentesis done. He just started spirinolactone to help get rid of some of the fluid. Onset: Gradual Duration: Week(s): Location: Reports: Abdomen Quality: Reports: Ache Severity: Moderate Improves with: Reports: None Worsens with: Reports: None Associated Symptoms: Reports: Shortness of Breath. Denies: Chest Pain, Cough, Fever/Chills, Headaches, Nausea/Vomiting Abdomen Pain Score (Numeric/FACES): 8 - Related Data Allergies Allergy/AdvReac Type Severity Reaction Status Date / Time No Known Allergies Allergy Verified 10/07/19 10:42 Home Meds: Home Meds Spironolactone [Aldactone] 25 mg PO BID 11/28/19 [History] Past Medical History Cardiovascular History: Reports: Heart Murmur, Hypertension Gastrointestinal History: Reports: Other (See Below) Other Gastrointestinal History: ascites Psychiatric History: Reports: Anxiety, Depression Endocrine/Metabolic History: Reports: Diabetes, Type II Other Endocrine/Metabolic History: diet controlled Oncologic (Cancer) History: Reports: Liver - Infectious Disease History Infectious Disease History: Reports: Measles - Past Surgical History Cardiovascular Surgical History: Reports: None Social & Family History - Family History Family Medical History: Noncontributory - Tobacco Use Smoking Status *Q: Current Every Day Smoker Years of Tobacco use: 50 Packs/Tins Daily: 0.3 - Caffeine Use Caffeine Use: Reports: Soda - Recreational Drug Use Recreational Drug Use: No ED ROS GENERAL - Review of Systems Review Of Systems: See Below Constitutional: Reports: No Symptoms HEENT: Reports: No Symptoms Respiratory: Reports: Shortness of Breath Cardiovascular: Reports: No Symptoms Endocrine: Reports: No Symptoms GI/Abdominal: Reports: Abdominal Pain, Distension. Denies: Nausea, Vomiting : Reports: No Symptoms Musculoskeletal: Reports: No Symptoms ED EXAM, GI/ABD - Physical Exam Exam: See Below Exam Limited By: No Limitations General Appearance: Alert, No Apparent Distress Ears: Normal External Exam Nose: Normal Inspection Head: Atraumatic, Normocephalic Neck: Normal Inspection Respiratory/Chest: No Respiratory Distress, Lungs Clear, Normal Breath Sounds Cardiovascular: Regular Rate, Rhythm, No Edema, No Murmur GI/Abdominal Exam: Distended. No: Tender Back Exam: Normal Inspection Course - Vital Signs Last Recorded V/S: Last Vital Signs Temp 97.6 F 11/28/19 18:15 Pulse 65 11/28/19 18:15 Resp 15 11/28/19 18:15 BP 138/76 11/28/19 18:15 Pulse Ox 100 11/28/19 18:15 - Re-Assessments/Exams Free Text/Narrative Re-Assessment/Exam: 11/28/19 18:30 I will do a paracentesis. 11/28/19 18:35 I was able to get our 1,200mls. I will discharge him home. Departure - Departure Time of Disposition: 18:40 Disposition: Home, Self-Care 01 Condition: Good Clinical Impression: Ascites Qualifiers: Ascites type: other type Qualified Code(s): R18.8 - Other ascites - Discharge Information *PRESCRIPTION DRUG MONITORING PROGRAM REVIEWED*: Not Applicable *COPY OF PRESCRIPTION DRUG MONITORING REPORT IN PATIENT ARTEM: Not Applicable Referrals: Pelon Acosta MD [Primary Care Provider] - 1 Week Forms: ED Department Discharge Additional Instructions: Take the medication as prescribed. Please return if you are worse. Sepsis Event Note (ED) - Evaluation Sepsis Screening Result: No Definite Risk - Focused Exam Vital Signs: Vital Signs Temp Pulse Resp BP Pulse Ox 11/28/19 18:15 97.6 F 65 15 138/76 100 11/28/19 18:01 69 18 141/77 H 100 11/28/19 16:47 98.6 F 87 20 150/91 H 99 Paracentesis - Paracentesis Paracentesis Indication: ascites Location: LLQ Skin prep: CDC/MBT Guidelines Ultrasound guided: Yes Local anesthesia: lidocaine 1 % Local anesthesia volume: 5cc Number of Attempts: 1 Device Used: 8 Fr kit device Fluid: yellow, clear Aspirated volume (mls): 1,200 Complications: No Dressing: adhesive dressing
== END 2019-11-28 18:48 | disposition home or self-care (01) ==
LOC: JD.ED 16:32
DX: R18.8 Other ascites (principal); E11.9 Type 2 diabetes mellitus without complications; F17.210 Nicotine dependence, cigarettes, uncomplicated; Z79.899 Other long term (current) drug therapy
CPT/HCPCS: 49083; 99284-25

== ENCOUNTER 2019-12-08 06:14 | Emergency (ER) | payer MEDICARE, OTHER ==
--- NOTE | 2019-12-08 06:38 | EDM.PDOC ---
<Milton Peres - Last Filed: 12/08/19 07:07> ED HPI GENERAL MEDICAL PROBLEM - General Chief Complaint: General Stated Complaint: [facility] Time Seen by Provider: 12/08/19 06:15 Source of Information: Reports: Patient History Limitations: Reports: No Limitations - History of Present Illness INITIAL COMMENTS - FREE TEXT/NARRATIVE: This is a 64-year-old male. 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 His last drink of alcohol was February 2019. He had a recent CTA of the abdomen and pelvis and September 2019 that showed a cirrhotic changes and the liver and a calcification of a previous mass within the caudate lobe of the liver thought to be treated hepatocellular carcinoma. He has been having periodic removal of fluid from his belly the most recent time he had paracentesis was on the of this month was approximately 10 days ago. He says that last night he apparently fell and was unable to get up off the floor. He sees a Dr. Aldridge in [place] who is his cancer doctor. He called the EMS this morning and they got him and brought him to the ER. He complains of feeling dizzy and weak. When he first arrived to the emergency department he was not complaining of any pain but now he is complaining of pain in his abdomen. Denies any fever or chills denies any cough. There is been no nausea vomiting or diarrhea. He denies being particularly short of breath. Treatments PEDORTHIST: Reports: IV/IO - Related Data Allergies Allergy/AdvReac Type Severity Reaction Status Date / Time No Known Allergies Allergy Verified 12/08/19 06:17 Home Meds: Home Meds Spironolactone [Aldactone] 25 mg PO BID 11/28/19 [History] Past Medical History Cardiovascular History: Reports: Heart Murmur, Hypertension Gastrointestinal History: Reports: Jaundice Other Gastrointestinal History: ascites Psychiatric History: Reports: Anxiety, Depression Endocrine/Metabolic History: Reports: Diabetes, Type II Other Endocrine/Metabolic History: diet controlled Oncologic (Cancer) History: Reports: Liver - Infectious Disease History Infectious Disease History: Reports: Measles - Past Surgical History Cardiovascular Surgical History: Reports: None Social & Family History - Family History Family Medical History: Noncontributory - Tobacco Use Smoking Status *Q: Never Smoker - Caffeine Use Caffeine Use: Reports: Soda - Recreational Drug Use Recreational Drug Use: No ED ROS GENERAL - Review of Systems Review Of Systems: See Below Constitutional: Reports: Malaise, Weakness, Fatigue. Denies: Fever, Chills HEENT: Reports: Other (Jaundice eyes) Respiratory: Reports: Shortness of Breath. Denies: Wheezing, Cough Cardiovascular: Denies: Chest Pain Endocrine: Reports: No Symptoms GI/Abdominal: Reports: Abdominal Pain, Other (Massive ascites). Denies: Diarrhea, Nausea, Vomiting : Reports: No Symptoms Musculoskeletal: Reports: Other (Complains of generalized weakness of his legs) Skin: Reports: Jaundice Neurological: Reports: Tremors, Other (the patient is a very poor historian) Psychiatric: Reports: Other (Slight confusion noted) ED EXAM, GENERAL - Physical Exam Exam: See Below Exam Limited By: No Limitations General Appearance: Alert, WD/WN, No Apparent Distress Eye Exam: Bilateral Eye: Other (Patient's eyes are jaundiced) Ears: Normal External Exam Nose: Normal Inspection Throat/Mouth: Normal Lips, Normal Oropharynx, Normal Voice, No Airway Compromise, Other (He has very dry mucous membranes) Head: Normocephalic, Other (His face itself is kahn and jaundiced) Neck: Other (Mild JVD) Respiratory/Chest: No Respiratory Distress, Lungs Clear, Normal Breath Sounds Cardiovascular: Regular Rate, Rhythm, Other (Sounds are diminished I cannot hear a murmur) GI/Abdominal: Other (His abdomen is very tense and tight, there is a splash noted, bowel sounds are decreased, there is no way any organs can be felt, he has some generalized tenderness all over his abdomen) Back Exam: Decreased Range of Motion Extremities: Pedal Edema, Other (1+ pitting edema of his anterior shins and slightly in his feet) Neurological: Alert, Oriented, Other (His memory of his recent events is somewhat diminished, he knows he is in the hospital and he knows this morning) Psychiatric: Normal Affect, Normal Mood Skin Exam: Warm, Dry Course - Re-Assessments/Exams Free Text/Narrative Re-Assessment/Exam: 12/08/19 07:07 I have handed the care of this patient over to Dr. Bird. Departure - Departure Disposition: DC/Tfer to [facility] 02 Clinical Impression: Hepatorenal syndrome - Discharge Information Referrals: Pelon Acosta MD [Primary Care Provider] - Forms: ED Department Discharge Sepsis Event Note (ED) - Evaluation Sepsis Screening Result: No Definite Risk <Wayne Bird - Last Filed: 12/08/19 10:02> Course - Vital Signs Last Recorded V/S: Last Vital Signs Temp 36.1 C 12/08/19 06:15 Pulse 79 12/08/19 06:15 Resp 15 12/08/19 06:15 BP 123/76 12/08/19 06:15 Pulse Ox 100 12/08/19 06:15 - Orders/Labs/Meds Orders: Active Orders 24 hr Category Date Time Status CXR [Chest 1V Frontal] [CR] Stat Exams 12/08/19 06:39 Taken CULTURE BLOOD [BC] Stat Lab 12/08/19 08:47 Ordered CULTURE BLOOD [BC] Stat Lab 12/08/19 08:47 Ordered MISC TEST Stat Lab 12/08/19 06:56 Received MISC TEST Stat Lab 12/08/19 06:56 Received REFLEX LACTIC ACID YES OR NO [CHEM] Routine Lab 12/08/19 09:45 Received Blood Culture x2 Reflex Set [OM.PC] Stat Oth 12/08/19 08:47 Ordered Labs: Laboratory Tests 12/08/19 12/08/19 12/08/19 Range/Units 06:56 06:56 06:56 WBC 19.55 H (4.23-9.07) K/mm3 RBC 3.95 L (4.63-6.08) M/mm3 Hgb 14.0 D (13.7-17.5) gm/dl Hct 38.9 L (40.1-51.0) % MCV 98.5 H D (79.0-92.2) fl MCH 35.4 H (25.7-32.2) pg MCHC 36.0 H (32.2-35.5) g/dl RDW Std Deviation 55.1 H (35.1-43.9) fL Plt Count 145 L D (163-337) K/mm3 MPV 9.1 L (9.4-12.3) fl Neut % (Auto) 77.7 H (34.0-67.9) % Lymph % (Auto) 5.5 L (21.8-53.1) % [place] % (Auto) 12.4 H (5.3-12.2) % Eos % (Auto) 0.4 L (0.8-7.0) Baso % (Auto) 0.3 (0.1-1.2) % Neut # (Auto) 15.17 H (1.78-5.38) K/mm3 Lymph # (Auto) 1.08 L (1.32-3.57) K/mm3 [place] # (Auto) 2.43 H (0.30-0.82) K/mm3 Eos # (Auto) 0.08 (0.04-0.54) K/mm3 Baso # (Auto) 0.06 (0.01-0.08) K/mm3 Manual Slide Review Abnormal smear PT 22.1 H (9.7-12.0) SECONDS INR 2.12 Sodium 128 L D (136-145) mEq/L Potassium 5.8 H D (3.5-5.1) mEq/L Chloride 94 L (98-107) mEq/L Carbon Dioxide 19 L (21-32) mEq/L Anion Gap 20.8 H (5-15) BUN 92 H D (7-18) mg/dL Creatinine 3.5 H D (0.7-1.3) mg/dL Est Cr Clr Drug Dosing 22.79 mL/min Estimated GFR (MDRD) 18 (>60) mL/min BUN/Creatinine Ratio 26.3 H (14-18) Glucose 68 L (80-115) mg/dL Lactic Acid (0.4-2.0) mmol/L Calcium 8.4 L (8.5-10.1) mg/dL Total Bilirubin 14.7 H (0.2-1.0) mg/dL Direct Bilirubin Cancelled AST 213 H (15-37) U/L ALT 112 H (16-63) U/L Alkaline Phosphatase 162 H (46-116) U/L Total Protein 6.8 (6.4-8.2) g/dl Albumin 1.4 L (3.4-5.0) g/dl Globulin 5.4 gm/dL Albumin/Globulin Ratio 0.3 L (1-2) 12/08/19 Range/Units 09:14 WBC (4.23-9.07) K/mm3 RBC (4.63-6.08) M/mm3 Hgb (13.7-17.5) gm/dl Hct (40.1-51.0) % MCV (79.0-92.2) fl MCH (25.7-32.2) pg MCHC (32.2-35.5) g/dl RDW Std Deviation (35.1-43.9) fL Plt Count (163-337) K/mm3 MPV (9.4-12.3) fl Neut % (Auto) (34.0-67.9) % Lymph % (Auto) (21.8-53.1) % [place] % (Auto) (5.3-12.2) % Eos % (Auto) (0.8-7.0) Baso % (Auto) (0.1-1.2) % Neut # (Auto) (1.78-5.38) K/mm3 Lymph # (Auto) (1.32-3.57) K/mm3 [place] # (Auto) (0.30-0.82) K/mm3 Eos # (Auto) (0.04-0.54) K/mm3 Baso # (Auto) (0.01-0.08) K/mm3 Manual Slide Review PT (9.7-12.0) SECONDS INR Sodium (136-145) mEq/L Potassium (3.5-5.1) mEq/L Chloride (98-107) mEq/L Carbon Dioxide (21-32) mEq/L Anion Gap (5-15) BUN (7-18) mg/dL Creatinine (0.7-1.3) mg/dL Est Cr Clr Drug Dosing mL/min Estimated GFR (MDRD) (>60) mL/min BUN/Creatinine Ratio (14-18) Glucose (80-115) mg/dL Lactic Acid 4.3 H* (0.4-2.0) mmol/L Calcium (8.5-10.1) mg/dL Total Bilirubin (0.2-1.0) mg/dL Direct Bilirubin AST (15-37) U/L ALT (16-63) U/L Alkaline Phosphatase (46-116) U/L Total Protein (6.4-8.2) g/dl Albumin (3.4-5.0) g/dl Globulin gm/dL Albumin/Globulin Ratio (1-2) Meds: Medications Discontinued Medications Generic Name Dose Route Start Last Admin Trade Name Freq PRN Reason Stop Dose Admin Dextrose/Water 50 ml 12/08/19 09:58 Dextrose 50% In Water IVPUSH 12/08/19 09:59 ONETIME ONE Insulin Human Regular 10 unit 12/08/19 09:47 Humulin R IV 12/08/19 09:48 ONETIME ONE Sodium Polystyrene Sulfonate 15 gm 12/08/19 09:46 Kayexalate PO 12/08/19 09:47 ONETIME ONE - Re-Assessments/Exams Free Text/Narrative Re-Assessment/Exam: 12/08/19 09:26 I did visit with the patient he is not having a lot of abdominal pain just the b loating from the reaccumulation of the ascites. It took a while to get his labs back I did review these and of concern on October 05 his BUN and creatinine was 9 and 1.0 it is now up to 92 and 3.5 his potassium is 5.8 we cannot get a direct bilirubin or ammonia because lab is having technical issues. 12/08/19 09:52 I did talk to Shauna at [facility] call called at [phone]. Discussed the patient's case with Dr. David, the hospitalist, who kindly accepted the patient at just before he would like me to start him on Kayexalate 15 g and give him some regular insulin 10 units and an amp of D50 for his hyperkalemia. Departure - Departure Time of Disposition: 09:54 Sepsis Event Note (ED) - Focused Exam Vital Signs: Vital Signs Temp Pulse Resp BP Pulse Ox 12/08/19 06:15 36.1 C 79 15 123/76 100 - My Orders Last 24 Hours: My Active Orders 12/08/19 08:47 CULTURE BLOOD [BC] Stat CULTURE BLOOD [BC] Stat Blood Culture x2 Reflex Set [OM.PC] Stat 12/08/19 09:45 REFLEX LACTIC ACID YES OR NO [CHEM] Routine - Assessment/Plan Last 24 Hours: My Active Orders 12/08/19 08:47 CULTURE BLOOD [BC] Stat CULTURE BLOOD [BC] Stat Blood Culture x2 Reflex Set [OM.PC] Stat 12/08/19 09:45 REFLEX LACTIC ACID YES OR NO [CHEM] Routine
--- NOTE | 2019-12-08 08:15 | US ---
Limited abdominal ultrasound: Multiple real-time images of the upper right abdomen were obtained. Liver is very small and irregular in surface contour compatible with cirrhosis. Multiple small hypoechoic nodules are seen within the thyroid gland and uncertain how many of these represent regenerating nodules versus carcinoma. Ascites is seen. Sludge is noted within the gallbladder. No shadowing gallstones are seen. Gallbladder wall is thickened which can be seen with ascites. Common bile duct not visualized with certainty. Right kidney shows a small hypodense lesion within the midpole which is most likely due to a small cyst. Inferior vena cava is patent. Main portal vein shows hepatopedal flow. Impression: 1. Cirrhotic change throughout the liver. Multiple small nodules within the liver. Uncertain how many represent regenerating nodules versus carcinoma. 2. Diffuse ascites. 3. Small cyst within the right kidney. 4. Sludge within the gallbladder. Gallbladder wall is second which can be seen with ascites. No shadowing gallstones are seen. Diagnostic code #9 Study was dictated in [facility]
[2019-12-08] MEDS ORDERED: Sodium Polystyrene Sulfonate 15 GM/60 ML Susp 60 ML Bot PO ONE (09:46)
[2019-12-08] MEDS ORDERED: Insulin Regular, Human 100 Units/ML 3 ML Vial IV ONE (09:47)
[2019-12-08] MEDS ORDERED: 50% Dextrose in Water 50 ML Syringe IVPUSH ONE (09:58)
--- NOTE | 2019-12-10 09:52 | CR ---
Chest: Portable view of the chest was obtained. Comparison: Prior chest x-ray of 10/06/19. Heart size appears within normal limits for portable technique. Tortuous thoracic aorta is noted. Lungs show no acute parenchymal change. Bony structures are grossly intact. Impression: 1. Nothing acute is appreciated on portable chest x-ray. Diagnostic code #2 This report was dictated in MDT
== END 2019-12-08 10:30 ==
LOC: JD.ED 06:14
DX: K76.7 Hepatorenal syndrome (principal); R60.0 Localized edema; I10 Essential (primary) hypertension; E11.9 Type 2 diabetes mellitus without complications; Z79.899 Other long term (current) drug therapy
CPT/HCPCS: 71045; 76705; 80053; 82962; 83605; 85025; 85610; 87040; 96374; 99285; A9270; J1815; 36415; 82140; 82248